=== PATIENT | male | born 1950 | race Caucasian/White ===

== ENCOUNTER 2023-03-12 16:33 | Inpatient (IN) | payer OTHER, SELFPAY ==
[2023-03-10] VITALS (40 sets, daily range): BP systolic 69–136; BP diastolic 40–87; PULSE 104–106; BMI 38.9; BMI 38.6
[2023-03-10 05:50] LABS: Glucose - Point of Care 180 mg/dl (70-99)
[2023-03-10] MEDS: NSS 1000 IV ×3 (05:50→17:53)
[2023-03-10 06:08] LABS: % Basophils 0.4 % (0-2); % Eosinophils 0.1 % (0-6); % Immature Granulocytes 0.5 % (0-0.5); % Lymphocytes 20.9 % (20.5-51.1); % Monocytes 9.5 % (1.7-9.3); % Neutrophils 68.6 % (42.2-75.2); Absolute Immature Granulocytes 0.1 10^3/uL (0-0.05); Absolute Lymphocytes 2.2 10^3/uL (1.2-3.4); Absolute Neutrophils 7.3 10^3/uL (1.4-6.5); Hematocrit 44.1 % (39.0-52.0); Mean Corp Hgb Conc. 36.3 g/dL (33.0-37.0); Mean Corpuscular Hgb 29.4 pg (27.0-31.0); Mean Corpuscular Volume 80.9 fL (80.0-94.0); Mean Platelet Volume 9.3 fL (7.4-10.4); Nucleated Red Blood Cells % 0 % (-); Platelet Count 162 10^3/uL (130-400); Red Blood Cell Count 5.45 10^6/uL (4.70-6.10); Red Cell Dist. Width 13.3 % (11.5-14.5); White Blood Cell Count 10.6 10^3/uL (4.8-10.8)
[2023-03-10] MEDS: OFIRMEV 1000 MG IV (06:26)
[2023-03-10 06:27] LABS: ALT (SGPT) 23 U/L (0-50); AST (SGOT) 110 U/L (17-59); Albumin 3.9 g/dl (3.5-5.0); Alkaline Phosphatase 45 U/L (38-126); Blood Urea Nitrogen 31 mg/dl (9-20); Calcium 8.7 mg/dl (8.4-10.2); Carbon Dioxide 17 mmol/L (22-30); Chloride 88 mmol/L (98-107); Estimated Creatinine Clearance 25 ml/min; Glucose 176 mg/dl (70-99); Potassium 3.8 mmol/L (3.5-5.1); Sodium 125 mmol/L (135-145); Total Bilirubin 1.1 mg/dl (0.2-1.3); Total Protein 6.5 g/dl (6.3-8.2); eGFR 19.09
[2023-03-10 06:37] LABS: Troponin I 0.402 ng/ml
--- NOTE | 2023-03-10 06:39 | ED.GENMED ---
History of Present Illness
General
Chief Complaint: Fainting/Passed Out
Source: patient
Exam Limitations: none
Time Seen by Provider: 03/10/23 06:05
Nursing documentation reviewed up to this point in time: agreed with
Travel History
Have you had any contact with someone who has COVID-19?: Yes
Comment: patient is COVID +
Do you have any symptoms of coronavirus? Fever > 100 degrees, chills, cough, shortness of breath, sore throat, loss of taste or smell, muscle aches, or headache?: Yes
Symptoms:: COVID +
History of Present Illness
History of Present Illness:
Patient who tested positive for COVID-19 2 days ago, and started on Paxlovid yesterday by his primary care physician, presents to ED after syncopal episode this morning. Per spouse, patient who was sleeping on a recliner, had gotten up and was
going to the bathroom when he passed out. who was sleeping on the couch next to him, heard a noise and went to him immediately. Patient was already awake but appeared to be groggy. 911 was called at that time. When medics arrived, patient
was found to hypotensive and ill-appearing. On the way to the stretcher, patient had another brief episode of loss consciousness, with spontaneous resolution. Upon arrival, patient is found to be febrile, hypotensive and tachycardic. Patient has
had nonproductive cough along with diarrhea, as well as significant loss of appetite. Denies headache. Denies neck pain. Denies loss of sensation or weakness.
Review of Systems
Review of Systems
Allergies reviewed?: Yes
All Other Systems: ROS reviewed and negative except as documented in HPI and ROS
Constitutional: Reports fever and chills
EENT: Reports no symptoms
Respiratory: Reports cough
Cardiac: Reports syncope
ABD/GI: Reports nausea and diarrhea; Denies abdominal pain or vomiting
: Reports no symptoms
Musculoskeletal: Reports muscle pain
Skin: Reports no symptoms
Neurological: Reports weakness; Denies headache or numbness
Phy Exam
Physical Exam
Physical Exam:
Physical Exam
General: moderate distress, acutely ill. febrile. tachycardic.
Head: nc/at. eomi
Neck: supple. no meningeal signs. normal posterior pharynx
Heart: tachycardic, no murmur. equal radial pulses.
Lungs: mild respiratory distress. clear bilaterally
Abdomen: normal bowel sounds. not tender.
Neuro: alert and oriented. no focal neurological deficits
Skin: no rash
Psychiatric: well kept. interactive and cooperative
Extremities: no edema. no calf tenderness.
Course
Orders/Labs/Results
Orders:
Orders
03/10/23 05:30
Electrocardiogram (*1) Urgent
Reason for Study: Chest Pain
Cardiac Monitoring- Treatment ONCE
EKG- Treatment ONCE
O2 Therapy [RESP] Urgent
Titrate/Wean O2 to maintain O2 sat greater than (%): 90
Special Instructions: Maintain sats >/=90%
Pulse Ox/spot Check [RESP] Urgent
Quantity: 1
Special Instructions: ON ROOM AIR
03/10/23 05:55
Complete Blood Count/With Diff Urgent
Comprehensive Metabolic Panel Urgent
Troponin I Urgent
03/10/23 Breakfast
2000 calorie (17 carb) Diabetic
At Your Request: Limited Participation
Diabetic Diet: Low Residue
Low Lactose
03/10/23 06:25
Acetaminophen 1000MG/100Ml [Ofirmev] 1,000 mg IV NOW STA
Acetaminophen 1000MG/100Ml [Ofirmev] 1,000 mg in 100 ml .ROUTE .STK-MED
03/10/23 06:37
0.9% Sodium Chloride 1000 ml [Nss] 1,000 ml IV BOLUS
03/10/23 06:44
0.9% Sodium Chloride 500 ml [Nss] 500 ml IV BOLUS
03/10/23 07:00
0.9% Sodium Chloride 500 ml [Nss] 500 ml IV Wide Open mls/hr
03/10/23 07:42
0.9% Sodium Chloride 500 ml [Nss] 500 ml IV BOLUS
03/10/23 08:12
Admit/Transfer Patient As Directed
Co-Sign Provider:
Level of Care: Observation services
Assign to:: IMU- Intermediate Care
Physician / Group: Dr. Jason Amador/Hospitalists
Diagnosis: COVID, Syncope, Hypotension
NORepinephrine 4 MG/250 ML [Levophed] 4 mg in 250 ml IV NOW
Initial dose in mcg/min, then titrate:: 2
Titrate to keep:: SBP > 90 mmHg
Titrate by mcg/min:: 1-2 mcg/min
Frequency of titrations (minutes):: 5
Maximum dose in ICU in mcg/min:: 30
Maximum dose in IMU in mcg/min:: 8
Maximum dose in IVU in mcg/min:: 4
Begin to taper infusion when:: Remained at goal for 4hrs
Taper by mcg/min:: 1-2 mcg/min
Frequency of taper (minutes) if patient maintains goal:: 30
Taper to off?: Yes
If infusion off & no longer maintaining goal:: Contact Provider
03/10/23 08:16
Code Status As Directed
Resuscitation Status: Full Code
03/10/23 08:21
Echo Follow up Study W Dop Routine
Reason for Study: Syncope, Hypotension
03/10/23 08:22
Orthostatic Vital Signs As Directed
Orthostatic VS Frequency: BID
03/10/23 08:25
NEPHROLOGY CONSULT Routine
Consulting Provider: Kim Membreno
Was physician already notified: Yes
Reason for consult: Acute Symptomatic Hyponatremia. SHAYY.
03/10/23 08:[address] Non Medication Order As Directed
Physician Order: PLEASE CONFIRM AND VERIFY THE ACCURACY OF PATIENT'S HOME MEDICATIONS AND PLEASE UPDATE THOSE
MEDICATIONS AND DOSES IN THE CHART
Above order entered?: Yes
03/10/23 10:20
Blood Culture Q30M
KALYN Source: Blood/Venous
Specimen Description:
03/10/23 10:42
Blood Culture Q30M
KALYN Source: Blood/Venous
Specimen Description:
03/10/23 11:40
0.9% Sodium Chloride 1000 ml [Nss] 1,000 ml IV 75 mls/hr
Aspirin Chewable [Low Strength Aspirin] 81 mg PO DAILY
ezetimibe-simvastatin 1 tablet PO DAILY
03/10/23 11:40
Activity As Directed
Activity Level: As Tolerated
Intake/ Output As Directed
Frequency: q12h
Neurological Checks As Directed
Frequency: q4h
Pneumatic Compression Sleeves As Directed
Type: Knee high
Vascular Checks As Directed
Location: Bilateral Upper and Lower Extremities
Frequency: q4h
Vital Signs As Directed
Frequency: Per unit guidelines
CR Chest Portable - 1 View Urgent
Comment:
Reason For Exam: Hypotension
Reason Study Needs to be Portable: Patient Unstable
DX Deep Vein Thrombosis Video Routine
03/10/23 15:10
Basic Metabolic Panel Q6H
Troponin I Q6H
03/10/23 16:00
Heparin 5,000 units SC Q8
03/10/23 17:02
Basic Metabolic Panel Q6H
Troponin I Q6H
03/11/23 01:07
Basic Metabolic Panel Q6H
Troponin I Q6H
03/11/23 03:46
Basic Metabolic Panel Q6H
Magnesium IN AM
Troponin I Q6H
03/11/23 03:47
Complete Blood Count/With Diff IN AM
03/11/23 07:00
Levothyroxine [Synthroid] 0.125 mcg PO DAILY@0700
03/11/23 08:00
Multivitamin [Theragran] 1 tablet PO DAILY
03/11/23 12:00
Basic Metabolic Panel Q6H
03/11/23 18:00
Basic Metabolic Panel Q6H
03/12/23 00:00
Basic Metabolic Panel Q6H
03/12/23 06:00
Basic Metabolic Panel Q6H
Complete Blood Count/With Diff IN AM
Magnesium IN AM
03/12/23 12:00
Basic Metabolic Panel Q6H
03/12/23 18:00
Basic Metabolic Panel Q6H
03/13/23 06:00
Complete Blood Count/With Diff IN AM
03/14/23 06:00
Complete Blood Count/With Diff IN AM
03/15/23 06:00
Complete Blood Count/With Diff IN AM
03/16/23 06:00
Complete Blood Count/With Diff IN AM
03/17/23 06:00
Complete Blood Count/With Diff IN AM
03/18/23 06:00
Complete Blood Count/With Diff IN AM
03/19/23 06:00
Complete Blood Count/With Diff IN AM
03/20/23 06:00
Complete Blood Count/With Diff IN AM
Abnormal Lab Results
03/10/23 03/10/23
05:48 05:55
Abs Immat Gran (auto) 0.1 H 10^3/uL
(0-0.05)
Absolute Neuts (auto) 7.3 H 10^3/uL
(1.4-6.5)
Absolute Monos (auto) 1.0 H 10^3/uL
(0.1-0.6)
Monocytes % 9.5 H %
(1.7-9.3)
Sodium 125 L mmol/L
(135-145)
Chloride 88 L mmol/L
(98-107)
Carbon Dioxide 17 L mmol/L
(22-30)
BUN 31 H mg/dl
(9-20)
Creatinine 3.3 H mg/dL
(0.7-1.3)
Glucose 176 H mg/dl
(70-99)
AST 110 H U/L
(17-59)
Troponin I 0.402 H* ng/ml
POC Glucose 180 H mg/dl
(70-99)
03/10/23 05:55
03/10/23 05:55
Vital Signs
Initial and Last Documented VS:
Initial Vital Signs
Temp Pulse Resp BP Pulse Ox
99.9 F 99 32 82/46 98
03/10/23 05:31 03/10/23 05:31 03/10/23 05:31 03/10/23 05:31 03/10/23 05:31
Last Documented Vital Signs
Temp Pulse Resp BP Pulse Ox
97.6 F 101 24 122/103 96
03/11/23 03:40 03/11/23 10:01 03/11/23 10:01 03/11/23 10:01 03/11/23 10:01
MDM/Problems Addressed
MDM/Problems Addressed:
History and exam consistent with syncopal episode, likely secondary to dehydration from ongoing COVID-19 infection, causing significant dehydration. Patient is alert, awake, and oriented at this time, without any neurological deficit. There is no
significant evidence of head trauma noted, and as such, we will withhold imaging studies at this time.
Acute renal failure on chronic renal insufficiency noted, likely secondary to dehydration.
Patient will be admitted for further evaluation and treatment, including continued hydration and fever control.
Patient with persistent hypotension despite IV fluid administration. As such, patient will be started on Levophed and admitted to ICU.
Critical care statement: A total of 40 minutes of critical care time was provided for this patient. This includes management of unstable vital signs, evaluation of the patient at bedside, reviewing the patient's pertinent medical records, review of
old EKGs and review of pertinent medical records. This time with separate from time utilized to perform the aforementioned documented procedures
*Critical Care Note
Total Time (30-74mins, 75-104mins- exclusive of procedures): 40 min
ED Attending Note
-
Portions of this chart may have been created with voice recognition software.� Occasional wrong word or��sound alike� substitutions may have occurred due to the inherent limitations of voice recognition software.
Discharge Plan
Departure
Patient Disposition: Admit
Date of Disposition: 03/10/23
Time of Disposition: 07:11
Presentation/result/management discussed w/ accepting MD/DO: Hospitalist
Condition: Fair
Covid-19: Confirmed COVID-19
Discharge Problem:
COVID-19, Syncope, Dehydration, Renal failure (ARF), acute on chronic
Interventions
Interventions:
*Risk Screen - Suicide Last Done: 03/10/23 16:39
*General Assessment Last Done: 03/10/23 05:31
*Neglect/Abuse Screening Last Done: 03/10/23 05:31
ED- Fall Risk Assessment Last Done: 03/10/23 05:40
*ED COVID-19 Vaccine History Last Done: 03/10/23 16:42
*Nursing Disposition Last Done: 03/10/23 16:09
ED- Cardiac Assessment Last Done: 03/10/23 05:40
ED- Neurological Assessment Last Done: 03/10/23 05:40
Discharge Date and Time
Discharge Date/Time: 03/10/23 16:10
[2023-03-10] MEDS: NSS 500 IV ×2 (06:47→07:49)
[2023-03-10] MEDS: LEVOPHED 250 IV (08:24)
--- NOTE | 2023-03-10 08:41 | HPS.HSE ---
Family Physician
-
Family Physician: PHYSICIAN PRIVATE
Chief Complaint
-
Passed out
History of Present Illness
72 y/o male with past medical history of Hypopituitarism, Adrenal Insufficiency on home hydrocortisone, History of pituitary tumor status post surgical resection approximately in 2001, Hypothyroidism, Type 2 Diabetes Mellitus, History of
Hypertension, Diverticulosis, Hyperlipidemia, Peripheral artery disease and GERD, presented with syncope. Patient tested positive for COVID-19 2 days ago, and started on Paxlovid yesterday by his primary care physician (he took his first 2 doses
yesterday), presented to the ED after syncopal episode this morning. Per patient's (who was present in the room at the time of admission) patient was sleeping on a recliner, had gotten up and was going to the bathroom when he passed out.
who was sleeping on the couch next to him, did not see patient pass out but heard a noise and went to him immediately. EMS was called at that time and when medics arrived, patient was found to hypotensive and ill-appearing. On the way to the
stretcher with EMS, patient had another brief episode of loss consciousness, with spontaneous resolution. Upon arrival to the ER, patient was found to be febrile, hypotensive and tachycardic. Patient, per patient's , also has had nonproductive
cough along with diarrhea, as well as significant loss of appetite.
Medical History
Past Medical History
Past Medical History: Reports Other (As per HPI above)
Past Surgical History: Reports Other (Colonoscopy. Pituitary Tumor Resection.)
Social History
Tobacco: Former Smoker
Alcohol: None
Drug: None
Family History
Family History: Not pertinent
Allergies / Home Medications
Allergies reflects when Allergies were last updated in [facility].
Home Medications with original date entered in [facility]
Allergy/Medication List:
Allergies
Allergy/AdvReac Type Severity Reaction Status Date / Time
No Known Allergies Allergy Verified 07/17/16 13:46
Home Medications
Androgel 06/29/08
Aspirin 06/29/08
Benicar 1 tab PO DAILY 06/29/08
Fish Oil 06/29/08
Hydrocortisone 1 tab PO DAILY 06/29/08
Synthroid 0.125 mg PO DAILY 06/29/08
aspirin 81 mg chewable tablet (Baby Aspirin) 81 mg PO DAILY 06/29/08
ezetimibe 10 mg-simvastatin 40 mg tablet 1 tab PO DAILY 06/29/08
metformin 500 mg tablet,extended release 24 hr 500 mg PO DAILY 06/29/08
multivitamin with folic acid 400 mcg tablet (Tab-A-Val) 1 tab PO DAILY 06/29/08
Review of Systems
-
A 12 point ROS was completed and negative except as noted: Yes
Physical Exam
Vital Signs
Vital Signs
Temp Pulse Resp BP Pulse Ox
99.4 F 97 32 90/65 95
03/10/23 07:42 03/10/23 08:34 03/10/23 08:34 03/10/23 08:34 03/10/23 08:34
Physical Exam
General: Appears in Distress (mild distress due to illness)
HEENT: NormoCephalic
Respiratory: Clear
Cardiac: S1/S2 and Tachycardia
GI: Soft, Non Tender and Normal Bowel Sounds
Musculoskeletal: No Cyanosis and No Edema
Skin: Warm and Dry
Neuro: Awake, Alert, AO x 3, Nonfocal/grossly intact and Other (Moves all extremities spontaneously. Speech is clear.)
Psych: Calm, Intact Judgment/Insight and Agitated
Laboratory Results
-
03/10/23 05:55
03/10/23 05:55
Laboratory Results
Total Bilirubin 1.1 mg/dl (0.2-1.3) 03/10/23 05:55
AST 110 U/L (17-59) H 03/10/23 05:55
ALT 23 U/L (0-50) 03/10/23 05:55
Alkaline Phosphatase 45 U/L (38-126) 03/10/23 05:55
Troponin I 0.402 ng/ml H* 03/10/23 05:55
Impression/Plan
-
Assessment/Plan
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
Fever
Suspected Sepsis TEST OPERATOR Secondary to COVID
Syncope, Suspected Associated with Dehydration, Poor PO Intake
Diarrhea
Hypotension
Hypopituitarism
Adrenal Insufficiency on home hydrocortisone
History of pituitary tumor status post surgical resection approximately in 2001
-Paxlovid started outpatient however patient has significant SHAYY with low eGFR - consulted ID for further guidance on Paxlovid and other COVID therapies
-Check lactic acid
-IV fluid boluses given in the ER; continue maintenance IV fluids
-Continue Levophed/vasopressors as needed to maintain MAP>65
-Stress dose steroids started in the form of Hydrocortisone IV 60 mg Q6H (assuming patient takes Hydrocortisone 20 mg PO BID at home -- will need to confirm home med rec)
-Consulted endocrinology, recommendations appreciated
-Verify home dose of Androgel and can resume as appropriate
-Orthostatic vital signs
-Troponins
-Echocardiogram
Symptomatic Hyponatremia - Suspected Hypovolemic
-IV fluid boluses given in the ER
-BMP every 6 hours
-Nephrology consulted, recommendations appreciated
Acute Kidney Injury
-IV fluid boluses given in the ER
-Nephrology consulted, recommendations appreciated
Hypothyroidism
-Continue home Synthroid
Type 2 Diabetes Mellitus - Insulin Sliding Scale and Accuchecks. Hold home Metformin given renal function.
History of Hypertension? - Hold home Benicar
History of Diverticulosis
Venous stasis
Hyperlipidemia
Peripheral artery disease - Continue Aspirin 81 mg daily
Nocturia
History of Tremor per records
History of Tic per records
GERD
WILL NEED HOME MED REC VERIFIED FOR ACCURACY; REQUEST HAS BEEN PLACED
DVT PPx: Heparin subq
Code Status: Full Code
Hypotension requiring increased dose of IV fluids as well as requiring vasopressors needing admission to and monitoring in the IMU is a high-risk encounter.
[2023-03-10 11:11] LABS: Lactic Acid 1.9 mmol/L (0.7-2.0)
[2023-03-10] MEDS: NSS IV (12:11)
[2023-03-10 12:32] LABS: Glucose - Point of Care 151 mg/dl (70-99)
[2023-03-10] MEDS: NOVOLOG FLEXPEN-LOW RESISTANCE SC (12:37)
[2023-03-10] MEDS: SOLU-CORTEF 50 MG IV ×3 (12:50→23:55)
[2023-03-10] MEDS: LOW STRENGTH ASPIRIN 81 MG PO (12:50)
--- NOTE | 2023-03-10 13:48 | CON.ID ---
Consultation
-
Date/Time Consultation Requested: March 10, 2023 0834
Date/Time Consultation Performed: March 10, 2023 1350
Requesting Provider: Dr. Jason Amador
Performing Provider: Dr. Ciera Baptiste
Reason for Consultation: COVID, GFR less than 30
Chief Complaint / Past History
Chief Complaint
Passed out.
History of Present Illness
History obtained from the patient. He is a 72-year-old male with hypopituitarism, adrenal insufficiency on hydrocortisone, diabetes mellitus, who started feeling unwell on March 07 with cough, rhinorrhea,malaise, poor appetite, diarrhea,
fever x 1. He tested positive for COVID. He called his physician who prescribed Paxlovid the next day on Wednesday. He had 3 doses. However overnight, he got up from the recliner to go to the bathroom. He felt very dizzy and passed out. His
heard him falling on the floor and found him unresponsive. She called EMS. Patient regained consciousness. He was very hypotensive. En route to the ER in ambulance, patient had another episode of unconsciousness. In the ER patient is febrile
102.8. Blood pressure 75/44. O2 sat 96% room air. He is in SHAYY. Patient reports he is up-to-date with the most recent COVID-vaccine. Cough is nonproductive. Still having diarrhea. No abdominal pain.
Past History
Additional Past Medical History:
Diabetes mellitus type 2
Hypertension
Pituitary adenoma s/p resection
Adrenal insufficiency on hydrocortisone
Hypothyroidism
PAD
Diverticulosis
Right knee surgery
Allergy History:
No Known Allergies Allergy (Verified 07/17/16 13:46)
Medications Reviewed: Yes
Current Antibiotics:
None
Social History
Tobacco: Former Smoker
Alcohol: None
Drug: None
Personal:
Family History
Family History: Not Pertinent
Review of Systems
Review of Systems
General: Fever, Chills and Change in Appetite
HEENT: Negative Stiff Neck, Headache or Pharyngitis
Respiratory: Cough; Negative Dyspnea or Sputum Production
Gasteroenterology: Other (+ diarrhea); Negative Nausea or Vomiting
Genital / Urological: Negative Dysuria or Flank Pain
Endocrine: Weakness and Fatigue
Skin / Hair / Nails: Negative Rash
Neurological: Dizziness; Negative Headache
All systems: All other systems were reviewed and were negative
Vital Signs
Temp Pulse Resp BP Pulse Ox
99.4 F 104 28 103/48 96
03/10/23 07:42 03/10/23 13:15 03/10/23 13:15 03/10/23 12:00 03/10/23 12:15
Selected Entries
03/10/23
06:00
Temp 102.8 F H
Physical Exam
Physical Exam
Constitutional: No Acute Distress and Comfortable
Eyes: Sclera Anicteric and Other (injected conjunctiva bilaterally)
Cardiovascular: S1/S2 and Other (tachycardic)
Pulmonary: Clear
Gastrointestinal: Soft, Non Tender, Non Distended and Normal Bowel Sounds
Genito-Urinary: Negative Garcia or CVA Tenderness
Extremities: Negative Edema
Neurological: AO x 3
Lab / Diagnostic Study Results
03/10/23 05:55
Abs Immat Gran (auto) 0.1 10^3/uL (0-0.05) H 03/10/23 05:55
Absolute Neuts (auto) 7.3 10^3/uL (1.4-6.5) H 03/10/23 05:55
Absolute Lymphs (auto) 2.2 10^3/uL (1.2-3.4) 03/10/23 05:55
Absolute Monos (auto) 1.0 10^3/uL (0.1-0.6) H 03/10/23 05:55
Absolute Basos (auto) 0.0 10^3/uL (0-0.2) 03/10/23 05:55
Immature Gran % 0.5 % (0-0.5) 03/10/23 05:55
Neutrophils % 68.6 % (42.2-75.2) 03/10/23 05:55
Lymphocytes % 20.9 % (20.5-51.1) 03/10/23 05:55
Monocytes % 9.5 % (1.7-9.3) H 03/10/23 05:55
Eosinophils % 0.1 % (0-6) 03/10/23 05:55
Basophils % 0.4 % (0-2) 03/10/23 05:55
Lactic Acid 1.9 mmol/L (0.7-2.0) 03/10/23 10:42
Microbiology Results
Micro:
03/10/23 10:42 Blood Culture - Pending
Blood/Venous
03/10/23 10:20 Blood Culture - Pending
Blood/Venous
03/10/23 10:20 Salmonella/Shigella Culture - Pending
Feces/Stool Campylobacter Culture - Pending
Shiga Toxin Test - Pending
03/10/23CXR: Limited AP semierect chest radiograph with possible mild left basilar subsegmental atelectasis.
Assessment / Plan
# Mild COVID19 infection
- Uptodate with vaccine
-Symptom onset and COVID Ag postive on 03/07.
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
- No hypoxia. No PNA
- Avoid Paxlovid due to SHAYY, GFR 19.
- Ordered Molnupiravir 800mg po bid x 5 days.
- COVID isolation through 03/17/23.
# Hypotension
- likely due to dehydrtion and stress response from COVID in pt with adrenal insufficiency on chronic steroid
# SHAYY
-Management as per nephrology.
--- NOTE | 2023-03-10 14:15 | CON.MD ---
Consultation - Medical
-
IMP:
Hyponatremia
SHAYY-cr 0.7 in in [facility]
A gap met acidosis
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
Fever
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
Syncope, hypotension
Diarrhea
Hypopituitarism
Adrenal Insufficiency on home hydrocortisone
History of pituitary tumor status post ablation approximately in 2000
Hypothyroidism
Type 2 Diabetes Mellitus
History of Hypertension
History of Diverticulosis
Venous stasis �
Hyperlipidemia �
Peripheral artery disease
Nocturia� �
History of Tremor per records� �
History of Tic per records
GERD
Plan:
A/w syncope and found sespis, hyponatremia and SHAYY
SHAYY likely from prerenal, check UA and FEna, renal US when can
follow bladder scan , cont isotonic fluids
expect to see improvement
cont pressors to keep MAP>65
stress dose steroids with h/o adrenal insufficiency
hypovolemic hyponatremia -cotn iVF , if worsens likely give 3%saline
mild gap met acidosis - normal L acid , bicarb fluid if worsens
avoid nephrotoxins hold ARB and metfomin, Farxiga
EUa for COVID
[id number]
[2023-03-10] MEDS: MOLNUPIRAVIR (EUA) 800 MG PO ×2 (15:12→20:27)
[2023-03-10 15:40] LABS: Blood Urea Nitrogen 30 mg/dl (9-20); Calcium 7.7 mg/dl (8.4-10.2); Carbon Dioxide 17 mmol/L (22-30); Chloride 97 mmol/L (98-107); Estimated Creatinine Clearance 24 ml/min; Glucose 182 mg/dl (70-99); Potassium 3.8 mmol/L (3.5-5.1); Sodium 126 mmol/L (135-145); eGFR 18.41
--- NOTE | 2023-03-10 15:45 | CON.GI ---
Addendum entered and electronically signed by Michoacano Marquez MD 03/10/23 18:13:
I saw and examined the patient.
The STAINLESS STEEL FINISHER or PA's note was reviewed and I agree with the note.
Comment: 72yo male presents with diarrhea starting Wednesday and also tested positive for COVID at that time. Had a syncopal episode at home. Denies abd pain. Has had profuse diarrhea since admission with bleeding from perianal skin excoriation.
Presents with ARF Cr 3.3, hypotension. He was at grandson's birthday on Wednesday in [place] and had hoagie. Denies sick contacts. No prior issues with diarrhea. Last colonoscopy 2016 only showed diverticulosis. He has hx pituitary adenoma and
adrenal insufficiency so he was started on stress steroids.
REC:
Continue supportive care, IVF, monitor BP. Diet as tolerated
Check stool C diff, Ecoli shiga toxin, giardia
Diarrhea could be part of COVID presentation or a separate infection. In either case, supportive care to treat.
Original Note:
Consultation
-
Date/Time Consultation Requested: 03/10/23 1515
Date/Time Consultation Performed: 02/20/23 1545
Requesting Provider: Jason Amador MD
Performing Provider: NATALIE Greenwood, Michoacano Marquez MD
Reason for Consultation: diarrhea
Medical History
Chief Complaint / HPI
Chief Complaint: diarrhea, rectal bleeding
History of Present Illness:
Pt is a 72yo with hx pituitary adenoma with ablation, adrenal insufficiency, NIDDM, HTN, hypercholesterolemia, hypothyroidism, tremors with presentation to ER with syncope. On EMS arrival noted with hypotension and ill appearing. In ER he was also
noted with fever, tachycardia with hemoconcentration and dehydration with hbg 16, SHAYY with creat 3.3, Na 125, Troponin 0.402. In reviewing with patient he was at birthday alliance party for grandnataliia on Wednesday eating hoagies then Wednesday began with
symptoms with increased diarrhea with decreased appetite and eating less. He then tested + for covid on Wednesday but with Paxlovid use.
Pt states stools are typically normal prior to onset. He has colonoscopy [place] [address] Montanez with diverticulosis. He otherwise denies abdominal pain, vomting, or blood in stools but noted with some local bleeding with irritation with
diarrhea. No other sick contacts or tainted foods he could recall.
Past Medical History
Past Medical History: HTN, Hypercholesterolemia, NIDDM and Other (covid 19, adrenal insufficiency, pituitary adenoma, obesity, PAD, tremor )
Past Surgical History: Orthopedic, Tonsilectomy and Other (pituitary adenoma ablation)
Social History
Tobacco: Former Smoker
Alcohol: Occasional (beer every 2 months )
Drug: None
Personal:
Living: With Family
Family History
Family History: Other (no family hx GI issues )
Allergies / Home Medications
Allergy/AdvReac Type Severity Reaction Status Date / Time
No Known Allergies Allergy Verified 07/17/16 13:46
Medication Instructions Recorded
aspirin 81 mg tablet,delayed 81 mg PO DAILY Blood Clot 03/10/23
release Prevention/Tx
clonidine HCl 0.1 mg tablet 0.1 mg PO BID Blood Pressure 03/10/23
dapagliflozin propanediol 5 mg 5 mg PO HS Diabetes 03/10/23
tablet (Farxiga)
hydrocortisone 20 mg tablet 20 mg PO DAILY adrenal 03/10/23
insufficiency
hydrocortisone 5 mg tablet 5 mg PO QPM adrenal insufficiency 03/10/23
levothyroxine 125 mcg tablet 125 mcg PO DAILY Thyroid 03/10/23
losartan 25 mg tablet 25 mg PO QPM Blood Pressure 03/10/23
metformin 750 mg tablet,extended 1,500 mg PO QPM Diabetes 03/10/23
release 24 hr
nirmatrelvir 300 mg (150 mg 0 ea PO .COMPLEX covid 03/10/23
x2)-ritonavir 100 mg tablet,dose
pack (Paxlovid)
omega 4-wnr-ume-fish oil 1,000 mg 1 cap PO DAILY Supplement 03/10/23
(120 mg-180 mg) capsule (Fish Oil)
simvastatin 40 mg tablet 40 mg PO HS High Cholesterol 03/10/23
testosterone 10 mg/0.5 2 pump transdermal SUTUTHSA apply 03/10/23
gram/actuation transdermal gel pump to B/L thighs/shoulders/stomach
testosterone 10 mg/0.5 4 pump transdermal MOWEFR apply to 03/10/23
gram/actuation transdermal gel pump B/L thighs/shoulders/stomach
therapeutic multivitamin 1 tab PO DAILY Supplement 03/10/23
vitamin E 1 tab PO QPM Supplement 03/10/23
Review of Systems
-
History Source: Patient
Constitutional: Reports Fever and Fatigue
EENT: Reports No Symptoms
Respiratory: Reports Trouble Breathing (minimal )
Cardiac: Reports Syncope
Abdomen/GI: Reports Diarrhea
: Reports Other (decreased urination)
Musculoskeletal: Reports No Symptoms
Skin: Reports No Symptoms
Neurological: Reports Weakness
Endocrine: Reports No Symptoms
Hematologic/Lymphatic: Reports Bleeding
Vital Signs
Temp Pulse Resp BP Pulse Ox
99.4 F 93 22 135/70 96
03/10/23 07:42 03/10/23 15:11 03/10/23 15:11 03/10/23 15:11 03/10/23 12:15
Physical Exam
Exam
General: Other (weakness but conversant )
HEENT: Normocephalic and Anicteric
Respiratory: Other (decreased )
Cardiac: Other (tachy with turning in bed )
GI: Soft, Non Tender and Non Distended
Musculoskeletal: No Clubbing and No Cyanosis
Skin: Warm and Dry
Neuro: Awake and Alert
Psych: Calm
Results
WBC 10.6 10^3/uL (4.8-10.8) 03/10/23 05:55
Hgb 16.0 g/dL (13.0-18.0) 03/10/23 05:55
Hct 44.1 % (39.0-52.0) 03/10/23 05:55
MCV 80.9 fL (80.0-94.0) 03/10/23 05:55
Plt Count 162 10^3/uL (130-400) 03/10/23 05:55
Absolute Neuts (auto) 7.3 10^3/uL (1.4-6.5) H 03/10/23 05:55
Sodium 126 mmol/L (135-145) L 03/10/23 15:10
Potassium 3.8 mmol/L (3.5-5.1) 03/10/23 15:10
Chloride 97 mmol/L (98-107) L 03/10/23 15:10
Carbon Dioxide 17 mmol/L (22-30) L 03/10/23 15:10
BUN 30 mg/dl (9-20) H 03/10/23 15:10
Creatinine 3.4 mg/dL (0.7-1.3) H 03/10/23 15:10
Calcium 7.7 mg/dl (8.4-10.2) L 03/10/23 15:10
Total Bilirubin 1.1 mg/dl (0.2-1.3) 03/10/23 05:55
AST 110 U/L (17-59) H 03/10/23 05:55
ALT 23 U/L (0-50) 03/10/23 05:55
Alkaline Phosphatase 45 U/L (38-126) 03/10/23 05:55
Diagnostic Image Results:
03/10/22 CXR Limited AP semierect chest radiograph with possible mild left basilar subsegmental atelectasis.
Prior GI Procedures:
Colonoscopy: 2017 diverticulosis
Assessment / Plan
-
Pt is a 72yo with hx pituitary adenoma with ablation, adrenal insufficiency, NIDDM, HTN, hypercholesterolemia, hypothyroidism, tremors with presentation to ER with syncope. On EMS arrival noted with hypotension and ill appearing. In ER he was also
noted with fever, tachycardia with hemoconcentration and dehydration with hbg 16, SHAYY with creat 3.3, Na 125, Troponin 0.402. In reviewing with patient he was at birthday alliance party for grandson on Wednesday eating hoagies then Wednesday began with
symptoms with increased diarrhea with decreased appetite and eating less. He then tested + for covid on Wednesday but with Paxlovid use. He has colonoscopy [place] [address] Montanez with diverticulosis. No other sick contacts or tainted foods he
could recall.
-sudden onset diarrhea
-local rectal bleeding with irritation with diarrhea
-covid +
-syncope/hypotension
-fever
-SHAYY
-tachycardia
-hyponatremia
other medical problems:
-pituitary adenoma
-adrenal insufficiency
-tremors
-NIDDM
-diverticulosis
-hypothyroidism
PLAN:
Etiology of diarrhea related to infectious source with sudden onset of large volume stool leading to SHAYY, dehydration, syncope vs covid related vs other
Ecoli Shiga can be seen with elevated creat and HUS cont to trend creat closely
cont rx for covid per ID with �Molnupiravir 800mg po bid x 5 days
check stool studies to rule out any other infectious etiology
cont hydration per nephrology
diet as tolerated add low lactose and low residue to diet
local care for rectal bleeding likely irritation with diarrhea
remain on chronic steroid with adrenal insufficiency
will follow
-
-
Thank you for consultation and allowing me to participate in the patient's care. Please call the configuration specialist GI physician during the after hours with any questions or concerns.
[2023-03-10 15:56] LABS: Troponin I 0.147 ng/ml
[2023-03-10 16:50] LABS: Glucose - Point of Care 231 mg/dl (70-99)
[2023-03-10 17:24] LABS: Urine Albumin Trace (Neg - Trace); Urine Bilirubin Negative (Negative); Urine Character Clear (Clear); Urine Color Yellow; Urine Glucose 2+ (Negative); Urine Ketone 1+ (Negative); Urine Leukocyte Negative (Negative); Urine Nitrite Negative (Negative); Urine Occult Blood 4+ (Negative); Urine Urobilinogen Negative (Neg - 1+)
[2023-03-10 17:30] LABS: Urine Squamous Cell 0-2 /LPF (Few)
[2023-03-10 17:36] LABS: Blood Urea Nitrogen 29 mg/dl (9-20); Calcium 8.2 mg/dl (8.4-10.2); Carbon Dioxide 18 mmol/L (22-30); Chloride 96 mmol/L (98-107); Estimated Creatinine Clearance 27 ml/min; Glucose 214 mg/dl (70-99); Sodium 126 mmol/L (135-145); eGFR 20.57
[2023-03-10 17:45] LABS: Protein/creatinine Ratio 1.3; Urine Protein 45 mg/dl; Urine Sodium 99 mmol/L (30-90)
[2023-03-10] MEDS: HEPARIN 5000 UNITS SC ×2 (17:54→23:55)
[2023-03-10] MEDS: VITAMIN E 400 UNITS PO (17:55)
[2023-03-10] MEDS: LIPITOR 20 MG PO (17:55)
[2023-03-10] MEDS: NOVOLOG FLEXPEN-LOW RESISTANCE 2 UNITS SC (18:00)
--- NOTE | 2023-03-10 18:47 | PTCARENOTE ---
Patient admitted to IMU with diagnosis Covid. Patient is drowsy but oriented. Having large amount of green liquid stool. Rectal trumpet inserted, GI consulted. Patient is now urinating in urinal 200-300ml each time. Consumed half of dinner. Levophed
continues at 4mcg along with IV NSS.
[2023-03-10] MEDS: TYLENOL 650 MG PO (20:27)
[2023-03-10 21:51] LABS: Glucose - Point of Care 251 mg/dl (70-99)
[2023-03-11] VITALS (48 sets, daily range): BP systolic 76–144; BP diastolic 46–106; PULSE 91–107; O2SAT 92–96; BMI 36.6
[2023-03-11 01:42] LABS: Troponin I 0.046 ng/ml
[2023-03-11 01:45] LABS: Blood Urea Nitrogen 31 mg/dl (9-20); Calcium 8.7 mg/dl (8.4-10.2); Carbon Dioxide 15 mmol/L (22-30); Chloride 97 mmol/L (98-107); Estimated Creatinine Clearance 37 ml/min; Glucose 258 mg/dl (70-99); Potassium 3.9 mmol/L (3.5-5.1); Sodium 129 mmol/L (135-145); eGFR 31.05
[2023-03-11] MEDS: LEVOPHED 250 IV (03:53)
[2023-03-11 04:23] LABS: % Basophils 0.1 % (0-2); % Immature Granulocytes 0.3 % (0-0.5); % Lymphocytes 4.9 % (20.5-51.1); % Monocytes 3.5 % (1.7-9.3); % Neutrophils 91.2 % (42.2-75.2); Absolute Lymphocytes 0.5 10^3/uL (1.2-3.4); Absolute Monocytes 0.4 10^3/uL (0.1-0.6); Hematocrit 42.6 % (39.0-52.0); Hemoglobin 14.9 g/dL (13.0-18.0); Mean Corpuscular Hgb 29.2 pg (27.0-31.0); Mean Corpuscular Volume 83.4 fL (80.0-94.0); Mean Platelet Volume 9.8 fL (7.4-10.4); Nucleated Red Blood Cells % 0 % (-); Platelet Count 157 10^3/uL (130-400); Red Blood Cell Count 5.11 10^6/uL (4.70-6.10); Red Cell Dist. Width 13.3 % (11.5-14.5)
[2023-03-11 04:46] LABS: Blood Urea Nitrogen 33 mg/dl (9-20); Calcium 8.7 mg/dl (8.4-10.2); Carbon Dioxide 16 mmol/L (22-30); Chloride 95 mmol/L (98-107); Estimated Creatinine Clearance 37 ml/min; Glucose 259 mg/dl (70-99); Magnesium 2.3 mg/dl (1.6-2.3); Sodium 131 mmol/L (135-145); eGFR 31.05
[2023-03-11 04:53] LABS: Troponin I 0.041 ng/ml
[2023-03-11] MEDS: SYNTHROID 125 MCG PO (06:05)
[2023-03-11] MEDS: SOLU-CORTEF 50 MG IV (06:05)
--- NOTE | 2023-03-11 07:09 | PTCARENOTE ---
pt pulled out rectal trumpet- pt without trumpet for a little bit- no diarrhea noted- rectal trumpet to stay out at this time, pt happy and in agreement.
[2023-03-11] MEDS: NOVOLOG FLEXPEN-LOW RESISTANCE 3 UNITS SC (08:48)
[2023-03-11 08:51] LABS: Glycohemoglobin (HgbA1c) 6.9 % (4.0-5.6)
[2023-03-11] MEDS: DESENEX/MITRAZOL/ZEASORB 1 APPLIC TOPICAL ×2 (08:55→19:48)
[2023-03-11 08:57] LABS: Glucose - Point of Care 258 mg/dl (70-99)
[2023-03-11] MEDS: HEPARIN 5000 UNITS SC ×2 (08:57→17:12)
[2023-03-11] MEDS: LOW STRENGTH ASPIRIN 81 MG PO (08:57)
[2023-03-11] MEDS: MOLNUPIRAVIR (EUA) 800 MG PO ×2 (08:58→19:48)
[2023-03-11] MEDS: THERAGRAN 1 TABLET PO (08:58)
[2023-03-11] MEDS: NSS 1000 IV (09:01)
[2023-03-11] MEDS: NON-FORMULARY ITEM 2 PUMP TRANSDERM (09:33)
--- NOTE | 2023-03-11 10:13 | W.PN.ID1 ---
Date of Service
Date of Service: March 11, 2023
Today's Communication
Continue molnupiravir.
Assessment / Plan
# Mild COVID19 infection
- Uptodate with vaccine
-Symptom onset and COVID Ag postive on 03/07.
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
- No hypoxia. No PNA
- Avoid Paxlovid due to SHAYY
- Continue Molnupiravir 800mg po bid x 5 days.
- COVID isolation through 03/17/23.
# Diarrhea resolved
-C. diff negative
# Hypotension - resolved
- likely due to dehydration and stress response from COVID in pt with adrenal insufficiency on chronic steroid
# SHAYY
-Management as per nephrology.
#Additional Past Medical History:
Diabetes mellitus type 2
Hypertension
Pituitary adenoma s/p resection
Adrenal insufficiency on hydrocortisone
Hypothyroidism
PAD
Diverticulosis
Right knee surgery
Chief Complaint
-: Other (COVID)
Subjective / Review of Systems
Feeling better. Diarrhea resolved.
+non-productive cough still
Vital Signs / Physical Exam
Vital Signs
Vital Signs
Temp Pulse Resp BP Pulse Ox
97.6 F 101 24 122/103 96
03/11/23 03:40 03/11/23 10:01 03/11/23 10:01 03/11/23 10:01 03/11/23 10:01
Physical Exam
Constitutional: No Acute Distress, Comfortable and Obese
Cardiovascular: Regular Rate and S1/S2
Pulmonary: Clear
Gastrointestinal: Soft, Non Tender, Non Distended and Normal Bowel Sounds
Genito-Urinary: Negative CVA Tenderness
Extremities: Negative Edema
Neurological: AO x 3
Objective Data
Lab Data
Lab Results
03/11/23 03:47
Estimated Creat Clear 37 ml/min 03/11/23 03:46
Lactic Acid 1.9 mmol/L (0.7-2.0) 03/10/23 10:42
Total Bilirubin 1.1 mg/dl (0.2-1.3) 03/10/23 05:55
AST 110 U/L (17-59) H 03/10/23 05:55
ALT 23 U/L (0-50) 03/10/23 05:55
Alkaline Phosphatase 45 U/L (38-126) 03/10/23 05:55
Most recent labs reviewed.
Micro Results:
03/10/23 10:20 Salmonella/Shigella Culture - Pending
Feces/Stool Campylobacter Culture - Pending
Shiga Toxin Test - Final
No E. coli Shiga Toxin 1 or 2 detected.
03/10/23 17:03 Stool Leukocytes - Final
Feces/Stool
03/10/23 17:03 Cryptosporidium/Giardia - Final
Feces/Stool Negative for Cryptosporidium and/or Giardia Lamblia
antigens.
C. difficile GDH Antigen & Toxins - Final
Negative for toxigenic C.difficile
03/10/23 10:42 Blood Culture - Pending
Blood/Venous
03/10/23 10:20 Blood Culture - Pending
Blood/Venous
03/10/23CXR: Limited AP semierect chest radiograph with possible mild left basilar subsegmental atelectasis.
--- NOTE | 2023-03-11 10:36 | PTCARENOTE ---
Patient aaox3 this morning. Neuro check as documented. He is eager to get OOB. PT/OT consulted for him. He does c/o of pain to his R shoulder that patient reports is from his fall when he passed out. He is unable to move it and uses his left arm to
move his right. His arm is neurovascularly intact. TT to . XR's ordered. Assessment, care and VS as charted.
--- NOTE | 2023-03-11 10:38 | CM ---
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 his pcp is dr efrain aguilar and uses [facility] [place] for his meds. he
has never had a vn in the past or been ip in a rehab facility.patient is adm with covid+, in covid isolation and on anti virals. he is c diff negative and his diarrhea has resolved. is very supportive per patient.
Plan is to discharge home when stable with no home care needs.
--- NOTE | 2023-03-11 11:15 | PTCARENOTE ---
Attempted to wean off of Levo. BP dropped to 80s systolic. Levo restarted at 1mcg/min with improvement of SBP >90.
--- NOTE | 2023-03-11 11:25 | W.PN.HOSP.TC ---
Addendum entered and electronically signed by Jason Amador MD 03/11/23 13:09:
Discussed case with patient's nurse, patient has right upper extremity pain especially right shoulder pain, possibly trauma from fall. Will check CT Head. Ordered x-rays of the right clavicle and right upper extremities.
Original Note:
Today's Communication/Plan
-
Doing better
Please see below
Assessment / Plan
Assessment / Plan
Physical Exam
General: Appears in Distress (mild distress due to illness)
HEENT: Normocephalic
Respiratory: Clear
Cardiac: S1/S2 and Tachycardia
GI: Soft, Non Tender and Normal Bowel Sounds
Musculoskeletal: No Cyanosis and No Edema
Skin: Warm and Dry
Neuro: Awake, Alert, AO x 3, Nonfocal/grossly intact and Other (Moves all extremities spontaneously. Speech is clear.)
Psych: Calm, Intact Judgment/Insight and Agitated

Echocardiogram as per legal operations manager's report:
'CONCLUSIONS
Normal left ventricular size.
Mild concentric left ventricular hypertrophy.
Hyperdynamic left ventricular systolic function.
No regional wall motion abnormalities are seen.
LV ejection fraction is 70-75% by visual assessment.
Normal right ventricular size and function.
Trace mitral regurgitation.
No aortic stenosis.
Trace tricuspid regurgitation.
Normal pericardium without effusion.'

Assessment/Plan
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
Fever
Suspected Sepsis HEALTH EVALUATOR Secondary to COVID
Syncope, Suspected Associated with Dehydration, Poor PO Intake
Diarrhea
Hypotension needing Levophed
Hypopituitarism
Adrenal Insufficiency on home hydrocortisone
History of pituitary tumor status post surgical resection approximately in 2001
-Paxlovid started outpatient however patient has significant SHAYY with low eGFR - consulted ID for further guidance on Paxlovid and other COVID therapies - AVOID PAXLOVID
-Continue Molnupiravir 800mg po bid x 5 days.
-COVID isolation through 03/17/23.
-Lactic acid is within normal limits
-IV fluid boluses given in the ER; continue maintenance IV fluids
-Wean Levophed/vasopressors as able
-Status post stress dose steroids started in the form of Hydrocortisone IV 60 mg Q6H (assuming patient takes Hydrocortisone 20 mg PO BID at home -- will need to confirm home med rec)
-Spoke with Dr. Bazzi of endocrinology: change on 03/11/23 to Hydrocortisone 20 mg Q12H while hospitalized but to 20 mg in the morning and 5 mg in the evening after discharge
-Consulted endocrinology, recommendations appreciated
-Orthostatic vital signs
-Troponins elevated but unremarkable
-Echocardiogram unremarkable
Symptomatic Hyponatremia - Suspected Hypovolemic
-IV fluid boluses given in the ER
-Monitor BMP
-Nephrology consulted, recommendations appreciated
Acute Kidney Injury
Metabolic Acidosis
-IV fluid boluses given in the ER
-Continue bicarb intravenous fluids
-Nephrology consulted, recommendations appreciated
Hypothyroidism
-Continue home Synthroid
Type 2 Diabetes Mellitus - Insulin Sliding Scale and Accuchecks. Hold home Metformin given renal function.
History of Hypertension? - Hold home Benicar. Also takes Clonidine at home.
History of Diverticulosis
Venous stasis �
Hyperlipidemia �
Peripheral artery disease - Continue Aspirin 81 mg daily
Nocturia� �
History of Tremor per records� �
History of Tic per records
GERD
DVT PPx: Heparin subq
Code Status: Full Code
Anticipated Discharge: 24 - 48 hours
Subjective/Interval History
-
Date of Service: March 11, 2023
Patient was seen and examined. He appeared much better today and denied any new complaints, however, patient's nurse mentioned that he had right shoulder pain, could barely lift his right arm and using his left arm to help lift it.
Objective Data
-
Labs:
Laboratory Results
03/11/23 03/11/23 03/11/23
01:07 03:46 03:47
WBC 11.0 H
Hgb 14.9
Hct 42.6
Plt Count 157
Sodium 129 L 131 L
Potassium 3.9 4.0
Chloride 97 L 95 L
Carbon Dioxide 15 L 16 L
BUN 31 H 33 H
Creatinine 2.2 H 2.2 H
Glucose 258 H 259 H
Calcium 8.7 8.7
03/11/23 03/11/23
12:00 18:00
WBC
Hgb
Hct
Plt Count
Sodium Cancelled Cancelled
Potassium Cancelled Cancelled
Chloride Cancelled Cancelled
Carbon Dioxide Cancelled Cancelled
BUN Cancelled Cancelled
Creatinine Cancelled Cancelled
Glucose Cancelled Cancelled
Calcium Cancelled Cancelled
Vital Signs:
Vital Signs
Temp Pulse Resp BP Pulse Ox
97.6 F 101 24 122/103 96
03/11/23 03:40 03/11/23 10:01 03/11/23 10:01 03/11/23 10:01 03/11/23 10:14
I&O
03/10/23 03/11/23 03/12/23
06:59 06:59 06:59
Intake Total 4000 / 4000
Output Total 1000 / 1000
Balance 3000 / 3000
--- NOTE | 2023-03-11 12:36 | W.PN.NEPH.PH ---
Today's Communication / Plan
-
change to bicarb IVF
Assessment/Plan
-
IMP:
Hyponatremia
SHAYY-cr 0.7 in in ECW
A gap met acidosis
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
Fever
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
Syncope, hypotension
Diarrhea
Hypopituitarism
Adrenal Insufficiency on home hydrocortisone
History of pituitary tumor status post ablation approximately in 2000
Hypothyroidism
Type 2 Diabetes Mellitus
History of Hypertension
History of Diverticulosis
Venous stasis �
Hyperlipidemia �
Peripheral artery disease
Nocturia� �
History of Tremor per records� �
History of Tic per records
GERD
Plan:
A/w syncope and found sepsis, hyponatremia and SHAYY, COVID childcare aide
SHAYY likely from prerenal, UA microhematuria ?chronic, renal US when can
follow bladder scan , likely 1 more day of IVF
cr is improving 2.2 and non oliguric,
send serologies
does have tubular proteinuria 1.3gm/gm of cr
wean pressors and maintain MAP>65
stress dose steroids with h/o adrenal insufficiency
hypovolemic hyponatremia -improving with IVF
mild gap met acidosis - change to bicarb fluid
avoid nephrotoxins hold ARB and metfomin, Farxiga
EUa for COVID per ID
-
-
Date of Service: March 11, 2023
CC / HPI / ROS
-
Chief Complaint:
SHAYY, hyponatremia
History of Present Illness:
cr improving to 2.2, sodium better at 131
met acidosis persists bicarb at 16
no fever, weaning pressors, BP imroving
Review of Systems:
no cp or sob
cough better
no diarrhea
Labs
-
Labs:
WBC 11.0 10^3/uL (4.8-10.8) H 03/11/23 03:47
RBC 5.11 10^6/uL (4.70-6.10) 03/11/23 03:47
Hgb 14.9 g/dL (13.0-18.0) 03/11/23 03:47
Hct 42.6 % (39.0-52.0) 03/11/23 03:47
Plt Count 157 10^3/uL (130-400) 03/11/23 03:47
Sodium Cancelled 03/11/23 18:00
Potassium Cancelled 03/11/23 18:00
Chloride Cancelled 03/11/23 18:00
Carbon Dioxide Cancelled 03/11/23 18:00
BUN Cancelled 03/11/23 18:00
Creatinine Cancelled 03/11/23 18:00
eGFR Cancelled 03/11/23 18:00
Glucose Cancelled 03/11/23 18:00
Calcium Cancelled 03/11/23 18:00
Albumin 3.9 g/dl (3.5-5.0) 03/10/23 05:55
Physical Exam
-
Vital Signs:
Vital Signs
Temp Pulse Resp BP Pulse Ox
97.6 F 101 24 122/103 96
03/11/23 03:40 03/11/23 10:01 03/11/23 10:01 03/11/23 10:01 03/11/23 10:14
Cardiovascular:: Regular rate and rhythm
Respiratory:: Bilateral: CTA
Lung Excursion:: Normal
Abdomen:: Nontender and Soft
Extremity Edema:: None: Bilateral:
Garcia Catheter: No
[2023-03-11] MEDS: SOLU-CORTEF IV (13:08)
[2023-03-11 13:59] LABS: Glucose - Point of Care 323 mg/dl (70-99)
[2023-03-11] MEDS: SODIUM BICARBONATE 1075 MEQ IV (14:03)
[2023-03-11] MEDS: NOVOLOG FLEXPEN-MODERATE RESISTANCE 7 UNITS SC (14:03)
--- NOTE | 2023-03-11 15:10 | W.PN.GI.CBS2 ---
Today's Communication / Plan
-
PLAN:
-Etiology of diarrhea related to infectious source with sudden onset of large volume stool leading to SHAYY, dehydration, syncope vs covid related vs other
Stool cultures pending, Shiga toxin, C. difficile, Cryptosporidium, Giardia negative and stool white cells negative
Diarrhea seems to have resolved
No further GI evaluation at this time
Tolerating diet
-cont rx for covid per ID with �Molnupiravir 800mg po bid x 5 days
-local care for rectal bleeding likely irritation with diarrhea
remain on chronic steroid with adrenal insufficiency
Will sign off, please call back if needed
Assessment / Plan
-
Pt is a 72yo with hx pituitary adenoma with ablation, adrenal insufficiency, NIDDM, HTN, hypercholesterolemia, hypothyroidism, tremors with presentation to ER with syncope. On EMS arrival noted with hypotension and ill appearing. In ER he was also
noted with fever, tachycardia with hemoconcentration and dehydration with hbg 16, SHAYY with creat 3.3, Na 125, Troponin 0.402. In reviewing with patient he was at birthday [employer] for grandson on Wednesday eating hoagies then Wednesday began with
symptoms with increased diarrhea with decreased appetite and eating less. He then tested + for covid on Wednesday but with Paxlovid use. He has colonoscopy [place] [address] Montanez with diverticulosis. No other sick contacts or tainted foods he
could recall.
-sudden onset diarrhea
-local rectal bleeding with irritation with diarrhea
-covid +
-syncope/hypotension
-fever
-SHAYY
-tachycardia
-hyponatremia
other medical problems:
-pituitary adenoma
-adrenal insufficiency
-tremors
-NIDDM
-diverticulosis
-hypothyroidism
PLAN:
-Etiology of diarrhea related to infectious source with sudden onset of large volume stool leading to SHAYY, dehydration, syncope vs covid related vs other
Stool cultures pending, Shiga toxin, C. difficile, Cryptosporidium, Giardia negative and stool white cells negative
Diarrhea seems to have resolved
No further GI evaluation at this time
Tolerating diet
-cont rx for covid per ID with �Molnupiravir 800mg po bid x 5 days
-local care for rectal bleeding likely irritation with diarrhea
remain on chronic steroid with adrenal insufficiency
Will sign off, please call back if needed
Subjective
Subjective
Date of Service: March 11, 2023
Patient without any diarrhea since admission, tolerating diabetic diet
Objective
Data Reviewed
Laboratory Data:
Laboratory Results
03/11/23 03:47
03/11/23 18:00
Laboratory Results
Magnesium 2.3 mg/dl (1.6-2.3) 03/11/23 03:46
Total Bilirubin 1.1 mg/dl (0.2-1.3) 03/10/23 05:55
AST 110 U/L (17-59) H 03/10/23 05:55
ALT 23 U/L (0-50) 03/10/23 05:55
Alkaline Phosphatase 45 U/L (38-126) 03/10/23 05:55
Vital Signs and I&O:
Vital Signs
Temp Pulse Resp BP Pulse Ox
97.6 F 101 22 130/86 96
03/11/23 03:40 03/11/23 15:01 03/11/23 15:01 03/11/23 15:01 03/11/23 15:01
I&O
03/10/23 03/11/23 03/12/23
06:59 06:59 06:59
Intake Total 4000 / 4000
Output Total 1000 / 1000
Balance 3000 / 3000
Physical Exam
Physical Exam
GI: Soft, Non Distended and Non Tender
[2023-03-11] MEDS: VITAMIN E 400 UNITS PO (17:12)
[2023-03-11] MEDS: LIPITOR 20 MG PO (17:12)
[2023-03-11 18:43] LABS: Glucose - Point of Care 259 mg/dl (70-99)
[2023-03-11] MEDS: NOVOLOG FLEXPEN-MODERATE RESISTANCE 5 UNITS SC (18:44)
[2023-03-11] MEDS: CORTEF 20 MG PO (19:48)
[2023-03-11] MEDS: TYLENOL 650 MG PO (19:49)
[2023-03-11 21:55] LABS: Glucose - Point of Care 217 mg/dl (70-99)
[2023-03-11] MEDS: LANTUS 0.149999999999999994 UNITS SC (21:55)
[2023-03-11] MEDS: HEPARIN SC (23:18)
[2023-03-12] VITALS (12 sets, daily range): BP systolic 102–147; BP diastolic 58–104; O2SAT 98; BMI 36.9
[2023-03-12] MEDS: SODIUM BICARBONATE 1075 MEQ IV (04:38)
[2023-03-12] MEDS: SYNTHROID 125 MCG PO (04:38)
[2023-03-12 04:53] LABS: % Basophils 0.1 % (0-2); % Eosinophils 0.2 % (0-6); % Immature Granulocytes 0.4 % (0-0.5); % Lymphocytes 9.1 % (20.5-51.1); % Monocytes 4.6 % (1.7-9.3); % Neutrophils 85.6 % (42.2-75.2); Absolute Monocytes 0.5 10^3/uL (0.1-0.6); Hematocrit 40.3 % (39.0-52.0); Hemoglobin 13.9 g/dL (13.0-18.0); Mean Corp Hgb Conc. 34.5 g/dL (33.0-37.0); Mean Corpuscular Hgb 28.9 pg (27.0-31.0); Mean Corpuscular Volume 83.8 fL (80.0-94.0); Nucleated Red Blood Cells % 0 % (-); Platelet Count 145 10^3/uL (130-400); Red Blood Cell Count 4.81 10^6/uL (4.70-6.10); Red Cell Dist. Width 13.4 % (11.5-14.5); White Blood Cell Count 10.5 10^3/uL (4.8-10.8)
[2023-03-12 05:19] LABS: Magnesium 2.6 mg/dl (1.6-2.3)
--- NOTE | 2023-03-12 05:45 | PTCARENOTE ---
assumed care of patient- pt is AAOx3- able to make needs known. pt feeling much better than yesterday. ortho vitals ordered- negative tilt. RA 97%- while sleeping pt does have periods of apnea- oxygen going down to 69%. 2L applied while asleep. pt
incontinent of urine- full bath given and pt changed- no periods of diarrhea. desenex to groin- MASD noted. right shoulder pain- given tylenol per APR. care ongoing.
[2023-03-12 08:54] LABS: Glucose - Point of Care 161 mg/dl (70-99)
[2023-03-12] MEDS: THERAGRAN 1 TABLET PO (08:57)
[2023-03-12] MEDS: HEPARIN 5000 UNITS SC ×3 (08:57→23:56)
[2023-03-12] MEDS: CORTEF 20 MG PO ×2 (08:57→21:27)
[2023-03-12] MEDS: LOW STRENGTH ASPIRIN 81 MG PO (08:57)
[2023-03-12] MEDS: NOVOLOG FLEXPEN-MODERATE RESISTANCE 1 UNITS SC ×2 (08:58→18:24)
[2023-03-12] MEDS: DESENEX/MITRAZOL/ZEASORB 1 APPLIC TOPICAL ×2 (08:58→21:28)
[2023-03-12] MEDS: MOLNUPIRAVIR (EUA) 800 MG PO ×2 (08:58→21:26)
[2023-03-12] MEDS: NON-FORMULARY ITEM 4 PUMP TRANSDERM (08:58)
--- NOTE | 2023-03-12 10:27 | CM ---
Addendum entered by Tomer Gonzalez 03/12/23 12:03:
Updated PT and OT evaluations noted. Pt is doing much better, however, SNF level of care recommended and if pt refused then home with home PT, 24/ supervision, 1st floor set up and home PT.
CM discussed it with pt and his spouse and both requested home with home PT and pt's spouse stated she is available for 24/7 supervision and pt will stay on 1st floor. A list of VN vendors provided. Both pt and his spouse preferred VN. [facility]
to [facility]. Both pt and his spouse are aware that pt most likely will be discharged tomorrow and they expressed their agreement. Pt's spouse stated she will transport pt home. Pt's spouse stated she has COVID and she will await for her
outside.
Please fax discharge instructions to [facility] at [phone].
D/C plan: home with VN, 31/08 family support/supervision, and 1st floor set up.
CM will follow with discharge plan updates as hospitalization progresses
Original Note:
CM following re: discharge planning.
Reviewed pt's chart, met with pt and spoke to pt's spouse over the phone to update on discharge plan progress.
PT and OT recommend SNF. Pt expressed not happy feelings regarding going to a SNF and asked to discuss it with his spouse. Pt's spouse requested PT and OT to see the pt today again and if pt is very weak and a SNF recommendation is very strong then
she will make a decision regarding pt going to a SNF.
Pt's spouse stated she will prefer pt returns back home with home PT if able. pt stated he has been receiving outpatient PT and OT at [facility] and pt feels he will be OK to return back home. Also, pt's spouse stated she had a
back surgery and she will not be able to care for pt at home if pt requires a lot of care.
PT and OT are aware and they will re-evaluate the pt today again.
Awaiting for PT/OT updated evaluations
D/C plan: SNF vs home with home PT and family support.
CM will follow with discharge plan updates as hospitalization progresses
--- NOTE | 2023-03-12 12:02 | W.PN.NEPH.PH ---
Today's Communication / Plan
-
ivf
Assessment/Plan
-
IMP:
Hyponatremia
SHAYY-cr 0.7 in in ECW
A gap met acidosis
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
Fever
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
Syncope, hypotension
Diarrhea
Hypopituitarism
Adrenal Insufficiency on home hydrocortisone
History of pituitary tumor status post ablation approximately in 2000
Hypothyroidism
Type 2 Diabetes Mellitus
History of Hypertension
History of Diverticulosis
Venous stasis �
Hyperlipidemia �
Peripheral artery disease
Nocturia� �
History of Tremor per records� �
History of Tic per records
GERD
Plan:
-follow BMP
-bicarb IVF today
-
-
Date of Service: March 12, 2023
CC / HPI / ROS
-
Chief Complaint:
SHAYY, hyponatremia
History of Present Illness:
cr improving to 2.2, sodium better at 131, but no labs yet today
met acidosis persists bicarb at 16 yesterday
no fever, weaning pressors, BP improving
Review of Systems:
no cp or sob
cough better
no diarrhea
Labs
-
Labs:
WBC 10.5 10^3/uL (4.8-10.8) 03/12/23 04:37
RBC 4.81 10^6/uL (4.70-6.10) 03/12/23 04:37
Hgb 13.9 g/dL (13.0-18.0) 03/12/23 04:37
Hct 40.3 % (39.0-52.0) 03/12/23 04:37
Plt Count 145 10^3/uL (130-400) 03/12/23 04:37
Sodium Cancelled 03/11/23 18:00
Potassium Cancelled 03/11/23 18:00
Chloride Cancelled 03/11/23 18:00
Carbon Dioxide Cancelled 03/11/23 18:00
BUN Cancelled 03/11/23 18:00
Creatinine Cancelled 03/11/23 18:00
eGFR Cancelled 03/11/23 18:00
Glucose Cancelled 03/11/23 18:00
Calcium Cancelled 03/11/23 18:00
Albumin 3.9 g/dl (3.5-5.0) 03/10/23 05:55
Physical Exam
-
Vital Signs:
Vital Signs
Temp Pulse Resp BP Pulse Ox
98.8 F 72 20 147/76 99
03/12/23 11:52 03/12/23 06:00 03/12/23 06:00 03/12/23 06:00 03/12/23 06:00
Cardiovascular:: Regular rate and rhythm
Respiratory:: Bilateral: Coarse
Lung Excursion:: Normal
Abdomen:: Nontender and Soft
Bowel Sounds:: Normal
Extremity Edema:: None: Bilateral:
--- NOTE | 2023-03-12 12:05 | W.PN.HOSP.TC ---
Today's Communication/Plan
-
Treat hyperglycemia as below with Lantus increase, Metformin and Farxiga
Continue IV fluids as per Loader Engineer
Restart home Clonidine and monitor response
Assessment / Plan
Assessment / Plan
Physical Exam
General: Not in acute distress
HEENT: Normocephalic
Respiratory: Clear
Cardiac: S1/S2 and RRR
GI: Soft, Non Tender and Normal Bowel Sounds
Musculoskeletal: No Cyanosis and No Edema
Skin: Warm and Dry
Neuro: Awake, Alert, AO x 3, Nonfocal/grossly intact and Other (Moves all extremities spontaneously. Speech is clear.)
Psych: Calm, Intact Judgment/Insight and Agitated

Echocardiogram as per academic department chair's report:
'CONCLUSIONS
Normal left ventricular size.
Mild concentric left ventricular hypertrophy.
Hyperdynamic left ventricular systolic function.
No regional wall motion abnormalities are seen.
LV ejection fraction is 70-75% by visual assessment.
Normal right ventricular size and function.
Trace mitral regurgitation.
No aortic stenosis.
Trace tricuspid regurgitation.
Normal pericardium without effusion.'

Assessment/Plan
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
Fever
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
Syncope, Suspected Associated with Dehydration, Poor PO Intake
Diarrhea
Hypotension needing Levophed
Hypopituitarism
Adrenal Insufficiency on home hydrocortisone
History of pituitary tumor status post surgical resection approximately in 2001
-Paxlovid started outpatient however patient has significant SHAYY with low eGFR - consulted ID for further guidance on Paxlovid and other COVID therapies - AVOID PAXLOVID
-Continue Molnupiravir 800mg po bid x 5 days (first day was 03/10/23)
-COVID isolation through 03/17/23.
-Lactic acid is within normal limits
-IV fluid boluses given in the ER; continue maintenance IV fluids
-Wean Levophed/vasopressors as able
-Status post stress dose steroids started in the form of Hydrocortisone IV 60 mg Q6H (assuming patient takes Hydrocortisone 20 mg PO BID at home -- will need to confirm home med rec)
-Spoke with Dr. Bazzi of endocrinology: change on 03/11/23 to Hydrocortisone 20 mg Q12H while hospitalized but to 20 mg in the morning and 5 mg in the evening after discharge
-Consulted endocrinology, recommendations appreciated
-Orthostatic vital signs
-Troponins elevated but unremarkable
-Echocardiogram unremarkable
Symptomatic Hyponatremia - Suspected Hypovolemic
-IV fluid boluses given in the ER
-Monitor BMP
-Nephrology consulted, recommendations appreciated
Acute Kidney Injury
Metabolic Acidosis
-IV fluid boluses given in the ER
-Continue bicarb intravenous fluids as per nephrology
-Nephrology consulted, recommendations appreciated
Hypokalemia
-Replace potassium
-Recheck BMP in the morning
Hypothyroidism
-Continue home Synthroid
Type 2 Diabetes Mellitus - Insulin Sliding Scale and Accuchecks. Hold home Metformin given renal function. With hyperglycemia, consulted Diabetes Nurse Practitioner: Lantus increased to 18 units HS, Metformin and Farxiga restarted.
History of Hypertension? - Hold home Benicar. Restart Clonidine to avoid Clonidine withdrawal - monitor BP closely after restarting home Clonidine.
History of Diverticulosis
Venous stasis �
Hyperlipidemia �
Peripheral artery disease - Continue Aspirin 81 mg daily
Nocturia� �
History of Tremor per records� �
History of Tic per records
GERD
DVT PPx: Heparin subq
Code Status: Full Code
Anticipated Discharge: 24 - 48 hours
Subjective/Interval History
-
Date of Service: March 12, 2023
Patient was seen and examined. Nurse reported that patient did not have any diarrhea today. Patient reports feeling fine and denied any new symptoms.
Objective Data
-
Labs:
Laboratory Results
03/12/23
04:37
WBC 10.5
Hgb 13.9
Hct 40.3
Plt Count 145
Vital Signs:
Vital Signs
Temp Pulse Resp BP Pulse Ox
98.8 F 72 20 147/76 99
03/12/23 11:52 03/12/23 06:00 03/12/23 06:00 03/12/23 06:00 03/12/23 06:00
I&O
03/11/23 03/12/23 03/13/23
06:59 06:59 06:59
Intake Total 4000 / 4000 1202.8 / 1202.8
Output Total 1000 / 1000
Balance 3000 / 3000 1202.8 / 1202.8
[2023-03-12 12:47] LABS: Glucose - Point of Care 203 mg/dl (70-99)
[2023-03-12] MEDS: NOVOLOG FLEXPEN-MODERATE RESISTANCE 3 UNITS SC (13:09)
[2023-03-12] MEDS: SODIUM BICARBONATE 1150 MEQ IV (13:10)
[2023-03-12 13:22] LABS: NT-proBNP 167 pg/ml
[2023-03-12 13:30] LABS: Blood Urea Nitrogen 38 mg/dl (9-20); Calcium 8.7 mg/dl (8.4-10.2); Carbon Dioxide 26 mmol/L (22-30); Chloride 93 mmol/L (98-107); Estimated Creatinine Clearance 73 ml/min; Glucose 206 mg/dl (70-99); Potassium 3.4 mmol/L (3.5-5.1); Sodium 133 mmol/L (135-145); eGFR > 60.00
--- NOTE | 2023-03-12 14:05 | VNURNOTE ---
Home Health Liaison spoke with patient's Michelle by phone at 1400 to discuss [facility] nurse/therapy, visits, schedule and homebound status. Michelle is agreeable and understands that visits at home will be 2-3 x per week to assess and teach medical
management.
Michelle is aware that [facility] will contact them for start of care in 1-2 days after discharge from .
[facility] referral completed in [facility].
--- NOTE | 2023-03-12 14:41 | PN.DE.MGMTRT ---
Insulin Management
- -
03/12/2023: Diabetes Management Consult
72 year old male with a PMH that includes: HTN, PAD, T2DM, HLD, Panhypopituitarism with adrenal insufficiency, Hypothyroidism and hypogonadism on levothyroxine, testosterone and 20 mg of hydrocortisone in the morning, 5 mg in the evening, he follows
with Endocrinology at [facility].
He was admitted on 03/10 for COVID and adrenal insufficiency and started on stress dose steroids 60 mg IV every 6 hours.
Pt was seen and evaluated by Endo Dr. Bazzi on 03/11 and tapered to Hydrocortisone 20mg BID. He was taking Farxiga 5mg @ HS and Metformin 1500mg QPM both on hold due to SHAYY. Cr 3.3-->2.2-->1.1 today. Current Diabetes regimen includes Lantus 15 units
and low corrective with meals.
His glucose has remained elevated >200, FBG 206 this AM, premeal range is 203-323.
Will increase Lantus to 18 units @ HS. Resume his OP regimen- Metformin 1500mg and Farxiga 5mg @ dinner time.
Cont Accucheks AC/HS, change diet to 1800 ADA diet.
Diabetes History
- -
Type of Diabetes: 2 requiring insulin
Pre-Admission Diabetes Regimen
03/12/23
13:00
Creatinine 1.1
Lab Results
Hemoglobin A1c 6.9 % (4.0-5.6) H 03/11/23 03:47
Insulin Pump Settings
IP Diabetes Regimen
03/11/23 03/11/23 03/12/23
18:31 21:43 08:43
Glucose
POC Glucose 259 H 217 H 161 H
03/12/23 03/12/23
12:36 13:00
Glucose 206 H
POC Glucose 203 H
Meal type: Lunch
Meal type: Breakfast
Meal type: Dinner
Meal type: Lunch
Amount consumed: Patient refused
Amount consumed: 80%
Amount consumed: 100%
Amount consumed: Patient refused
Patient Education
--- NOTE | 2023-03-12 17:00 | PTCARENOTE ---
Testosterone medication given to JEROME Griffith on .
[2023-03-12 18:23] LABS: Glucose - Point of Care 162 mg/dl (70-99)
[2023-03-12] MEDS: VITAMIN E 400 UNITS PO (18:24)
[2023-03-12] MEDS: FARXIGA 5 MG PO (18:24)
[2023-03-12] MEDS: LIPITOR 20 MG PO (18:25)
[2023-03-12] MEDS: GLUCOPHAGE XR EXTENDED RELEASE 1500 MG PO (18:25)
[2023-03-12] MEDS: LANTUS 0.179999999999999993 UNITS SC (21:25)
[2023-03-12 21:26] LABS: Glucose - Point of Care 169 mg/dl (70-99)
[2023-03-12] MEDS: CATAPRES 0.100000000000000006 MG PO (21:27)
[2023-03-13 03:30] VITALS: BP 125/85
[2023-03-13] MEDS: SYNTHROID 125 MCG PO (06:36)
[2023-03-13 07:45] VITALS: BP 109/73
[2023-03-13 07:48] LABS: Glucose - Point of Care 125 mg/dl (70-99)
[2023-03-13 08:21] LABS: % Basophils 0.3 % (0-2); % Eosinophils 0.8 % (0-6); % Immature Granulocytes 0.5 % (0-0.5); % Monocytes 7.7 % (1.7-9.3); % Neutrophils 65.7 % (42.2-75.2); Absolute Eosinophils 0.1 10^3/uL (0-0.7); Absolute Lymphocytes 1.6 10^3/uL (1.2-3.4); Absolute Monocytes 0.5 10^3/uL (0.1-0.6); Absolute Neutrophils 4.1 10^3/uL (1.4-6.5); Hematocrit 36.4 % (39.0-52.0); Hemoglobin 12.9 g/dL (13.0-18.0); Mean Corp Hgb Conc. 35.4 g/dL (33.0-37.0); Mean Corpuscular Hgb 29.5 pg (27.0-31.0); Mean Corpuscular Volume 83.1 fL (80.0-94.0); Mean Platelet Volume 9.2 fL (7.4-10.4); Nucleated Red Blood Cells % 0 % (-); Platelet Count 165 10^3/uL (130-400); Red Blood Cell Count 4.38 10^6/uL (4.70-6.10); Red Cell Dist. Width 13.2 % (11.5-14.5); White Blood Cell Count 6.3 10^3/uL (4.8-10.8)
--- NOTE | 2023-03-13 08:58 | W.PN.ID1 ---
Date of Service
Date of Service: March 13, 2023
Today's Communication
SHAYY resolved. Currently on Molnupiravir 800mg po bid (day 4). At time of discharge, can dc Molnupiravir and resume his home Paxlovid x 2 more days through 03/14/23.
ID will sign off.
Assessment / Plan
# Mild COVID19 infection
- Uptodate with vaccine
-Symptom onset and COVID Ag postive on 03/07.
- Had outpatient Paxlovid x 3 doses RETAIL PROPERTY MANAGER
- No hypoxia. No PNA
- Paxlovid changed to Molnupiravir due to recent SHAYY
- SHAYY resolved. Currently on Molnupiravir 800mg po bid (day 4). At time of discharge, can dc Molnupiravir and resume resume his home Paxlovid x 2 more days through 04/03.
# Diarrhea resolved
-C. diff negative
# Hypotension - resolved
# SHAYY - resolved
#Additional Past Medical History:
Diabetes mellitus type 2
Hypertension
Pituitary adenoma s/p resection
Adrenal insufficiency on hydrocortisone
Hypothyroidism
PAD
Diverticulosis
Right knee surgery
Chief Complaint
-: Other (COVID)
Subjective / Review of Systems
Feels well. Wants to go home.
Cough improving.
Vital Signs / Physical Exam
Vital Signs
Vital Signs
Temp Pulse Resp BP Pulse Ox
97.9 F 77 18 109/73 97
03/13/23 07:45 03/13/23 07:45 03/13/23 07:45 03/13/23 07:45 03/13/23 07:45
Physical Exam
Constitutional: Comfortable
Cardiovascular: Regular Rate and S1/S2
Pulmonary: Clear
Gastrointestinal: Soft, Non Tender, Non Distended and Normal Bowel Sounds
Neurological: AO x 3
Objective Data
Lab Data
Lab Results
03/13/23 08:05
03/12/23 13:00
Estimated Creat Clear 73 ml/min 03/12/23 13:00
Lactic Acid 1.9 mmol/L (0.7-2.0) 03/10/23 10:42
Total Bilirubin 1.1 mg/dl (0.2-1.3) 03/10/23 05:55
AST 110 U/L (17-59) H 03/10/23 05:55
ALT 23 U/L (0-50) 03/10/23 05:55
Alkaline Phosphatase 45 U/L (38-126) 03/10/23 05:55
Most recent labs reviewed.
Micro Results:
03/10/23 10:20 Salmonella/Shigella Culture - Final
Feces/Stool No Salmonella, Shigella, Aeromonas or Plesiomonas species
isolated.
Campylobacter Culture - Final
No Campylobacter species isolated.
Shiga Toxin Test - Final
No E. coli Shiga Toxin 1 or 2 detected.
03/10/23 10:42 Blood Culture - Preliminary
Blood/Venous No Growth in 48 hours- Final report to follow
03/10/23 10:20 Blood Culture - Preliminary
Blood/Venous No Growth in 48 hours- Final report to follow
03/10/23 17:03 Stool Leukocytes - Final
Feces/Stool
03/10/23 17:03 Cryptosporidium/Giardia - Final
Feces/Stool Negative for Cryptosporidium and/or Giardia Lamblia
antigens.
C. difficile GDH Antigen & Toxins - Final
Negative for toxigenic C.difficile
03/10/23CXR: Limited AP semierect chest radiograph with possible mild left basilar subsegmental atelectasis.
Care Review
Plan reviewed with: Physician (Dr. Amador.)
[2023-03-13] MEDS: NOVOLOG FLEXPEN-MODERATE RESISTANCE SC ×3 (09:09→16:50)
[2023-03-13] MEDS: CATAPRES 0.100000000000000006 MG PO (09:10)
[2023-03-13] MEDS: CORTEF 20 MG PO (09:10)
[2023-03-13] MEDS: THERAGRAN 1 TABLET PO (09:10)
[2023-03-13] MEDS: LOW STRENGTH ASPIRIN 81 MG PO (09:11)
[2023-03-13] MEDS: HEPARIN 5000 UNITS SC (09:11)
[2023-03-13] MEDS: DESENEX/MITRAZOL/ZEASORB 1 APPLIC TOPICAL (09:11)
[2023-03-13] MEDS: NON-FORMULARY ITEM 1 PUMP TRANSDERM (09:13)
--- NOTE | 2023-03-13 09:16 | W.PN.NEPH.PH ---
Today's Communication / Plan
-
s/o
Assessment/Plan
-
IMP:
Hyponatremia
SHAYY-cr 0.7 in in ECW
A gap met acidosis
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
Fever
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
Syncope, hypotension
Diarrhea
Hypopituitarism
Adrenal Insufficiency on home hydrocortisone
History of pituitary tumor status post ablation approximately in 2000
Hypothyroidism
Type 2 Diabetes Mellitus
History of Hypertension
History of Diverticulosis
Venous stasis �
Hyperlipidemia �
Peripheral artery disease
Nocturia� �
History of Tremor per records� �
History of Tic per records
GERD
Plan:
-follow BMP
-cap IVF
-will sign off
-
-
Date of Service: March 13, 2023
CC / HPI / ROS
-
Chief Complaint:
SHAYY, hyponatremia
History of Present Illness:
cr improving to 1.1 yesterday
sodium better at 133
met acidosis resolved
no fever, weaning pressors, BP improving
Review of Systems:
no cp or sob
cough better
no diarrhea
eating
Labs
-
Labs:
WBC 6.3 10^3/uL (4.8-10.8) 03/13/23 08:05
RBC 4.38 10^6/uL (4.70-6.10) L 03/13/23 08:05
Hgb 12.9 g/dL (13.0-18.0) L 03/13/23 08:05
Hct 36.4 % (39.0-52.0) L 03/13/23 08:05
Plt Count 165 10^3/uL (130-400) 03/13/23 08:05
Sodium 133 mmol/L (135-145) L 03/12/23 13:00
Potassium 3.4 mmol/L (3.5-5.1) L 03/12/23 13:00
Chloride 93 mmol/L (98-107) L 03/12/23 13:00
Carbon Dioxide 26 mmol/L (22-30) 03/12/23 13:00
BUN 38 mg/dl (9-20) H 03/12/23 13:00
Creatinine 1.1 mg/dL (0.7-1.3) 03/12/23 13:00
eGFR > 60.00 03/12/23 13:00
Glucose 206 mg/dl (70-99) H 03/12/23 13:00
Calcium 8.7 mg/dl (8.4-10.2) 03/12/23 13:00
Egq-L-Mmjvpswnkkv Pept 167 pg/ml 03/12/23 04:37
Albumin 3.9 g/dl (3.5-5.0) 03/10/23 05:55
Physical Exam
-
Vital Signs:
Vital Signs
Temp Pulse Resp BP Pulse Ox
97.9 F 77 18 109/73 97
03/13/23 07:45 03/13/23 07:45 03/13/23 07:45 03/13/23 07:45 03/13/23 07:45
Cardiovascular:: Regular rate and rhythm
Respiratory:: Bilateral: Coarse
Lung Excursion:: Normal
Abdomen:: Nontender and Soft
Bowel Sounds:: Normal
Extremity Edema:: None: Bilateral:
[2023-03-13] MEDS: MOLNUPIRAVIR (EUA) 800 MG PO (09:20)
[2023-03-13] MEDS: SODIUM BICARBONATE IV (09:24)
[2023-03-13] MEDS: KCL 40 MEQ PO (09:26)
[2023-03-13 10:41] LABS: Blood Urea Nitrogen 26 mg/dl (9-20); Calcium 8.1 mg/dl (8.4-10.2); Carbon Dioxide 31 mmol/L (22-30); Chloride 97 mmol/L (98-107); Estimated Creatinine Clearance 100 ml/min; Glucose 166 mg/dl (70-99); Potassium 3.1 mmol/L (3.5-5.1); Sodium 132 mmol/L (135-145); eGFR > 60.00
[2023-03-13 12:02] LABS: Glucose - Point of Care 134 mg/dl (70-99)
--- NOTE | 2023-03-13 14:04 | W.PN.HOSP.TC ---
Today's Communication/Plan
-
Patient needs SNF; case management assistance is appreciated
Assessment / Plan
Assessment / Plan
Physical Exam
General: Not in acute distress
HEENT: Normocephalic
Respiratory: Clear
Cardiac: S1/S2 and RRR
GI: Soft, Non Tender and Normal Bowel Sounds
Musculoskeletal: No Cyanosis and No Edema
Skin: Warm and Dry
Neuro: Awake, Alert, AO x 3, Nonfocal/grossly intact and Other (Moves all extremities spontaneously. Speech is clear.)
Psych: Calm, Intact Judgment/Insight and Agitated

Echocardiogram as per hemodialysis technician's report:
'CONCLUSIONS
Normal left ventricular size.
Mild concentric left ventricular hypertrophy.
Hyperdynamic left ventricular systolic function.
No regional wall motion abnormalities are seen.
LV ejection fraction is 70-75% by visual assessment.
Normal right ventricular size and function.
Trace mitral regurgitation.
No aortic stenosis.
Trace tricuspid regurgitation.
Normal pericardium without effusion.'

Assessment/Plan
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
Fever
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
Syncope, Suspected Associated with Dehydration, Poor PO Intake
Diarrhea
Hypotension needing Levophed - RESOLVED
Hypopituitarism
Adrenal Insufficiency on home hydrocortisone
History of pituitary tumor status post surgical resection approximately in 2001
-Paxlovid started outpatient however patient has significant SHAYY with low eGFR - consulted ID for further guidance on Paxlovid and other COVID therapies
-Continue Molnupiravir
-COVID isolation through 03/17/23.
-Lactic acid is within normal limits
-IV fluid boluses given in the ER; continue maintenance IV fluids
-Status post stress dose steroids started in the form of Hydrocortisone IV 60 mg Q6H
-Spoke with Dr. Bazzi of endocrinology: change on 03/11/23 to Hydrocortisone 20 mg Q12H while hospitalized but to 20 mg in the morning and 5 mg in the evening after discharge
-Consulted endocrinology, recommendations appreciated
-Orthostatic vital signs
-Troponins elevated but unremarkable
-Echocardiogram unremarkable
Symptomatic Hyponatremia - Suspected Hypovolemic
-IV fluid boluses given in the ER
-Monitor BMP
-Nephrology consulted, recommendations appreciated
Acute Kidney Injury
Metabolic Acidosis
-IV fluid boluses given in the ER
-Status post bicarb intravenous fluids as per nephrology
-Nephrology consulted, recommendations appreciated
Hypokalemia
-Replace potassium
-Recheck BMP in the morning
-Will consider discharging on 10 meq BID potassium for the next 3 days (patient will also be resumed on Benicar so that should help with the hypokalemia)
Hypothyroidism
-Continue home Synthroid
Type 2 Diabetes Mellitus - Insulin Sliding Scale and Accuchecks. Hold home Metformin given renal function. With hyperglycemia, consulted Diabetes Nurse Practitioner: Lantus increased to 18 units HS, Metformin and Farxiga restarted.
History of Hypertension? - Resume home Benicar. Continue Clonidine.
History of Diverticulosis
Venous stasis �
Hyperlipidemia �
Peripheral artery disease - Continue Aspirin 81 mg daily
Nocturia� �
History of Tremor per records� �
History of Tic per records
GERD
DVT PPx: Heparin subq
Code Status: Full Code
Anticipated Discharge: 24 - 48 hours
Subjective/Interval History
-
Date of Service: March 13, 2023
Patient was seen and examined. He reported no new chest pain or shortness of breath, he would like to go home today.
Objective Data
-
Labs:
Laboratory Results
03/13/23 03/13/23
08:05 10:04
WBC 6.3
Hgb 12.9 L
Hct 36.4 L
Plt Count 165
Sodium 132 L
Potassium 3.1 L
Chloride 97 L
Carbon Dioxide 31 H
BUN 26 H
Creatinine 0.8
Glucose 166 H
Calcium 8.1 L
Vital Signs:
Vital Signs
Temp Pulse Resp BP Pulse Ox
98 F 69 16 109/73 96
03/13/23 11:40 03/13/23 11:40 03/13/23 11:40 03/13/23 09:10 03/13/23 11:40
I&O
03/12/23 03/13/23 03/14/23
06:59 06:59 06:59
Intake Total 1202.8 / 1202.8 1350 / 1350
Balance 1202.8 / 1202.8 1350 / 1350
--- NOTE | 2023-03-13 14:55 | CM ---
Chart reviewed and nurse case manager confirmed with patient's spouse plan is to home with [facility].
Plan; Home with [facility].
[2023-03-13 15:38] VITALS: BP 122/68
[2023-03-13] MEDS: HEPARIN SC (16:50)
--- NOTE | 2023-03-13 17:19 | W.DS.TRANS ---
DC Summary - Telesales Representative
-
Discharge Instructions:
Discharge Diagnosis/Procedures Recent COVID (+) Diagnosis 2 days Prior to
Arrival
Fever
Suspected Sepsis Prior to Arrival, Secondary to
COVID
Syncope, Suspected Associated with Dehydration,
Poor Oral Intake
Diarrhea
Hypotension needing Levophed
Hypopituitarism
Adrenal Insufficiency on home hydrocortisone
History of pituitary tumor status post surgical
resection approximately in 2001
Symptomatic Hyponatremia - Suspected Hypovolemic
Acute Kidney Injury
Metabolic Acidosis
Hypokalemia
Hypothyroidism
Type 2 Diabetes Mellitus
Suspected history of hypertension
History of Diverticulosis
Venous stasis
Hyperlipidemia
Peripheral artery disease
Nocturia
History of Tremor per records
History of Tic per records
Gastroesophageal Reflux Disease
Diet Diabetic, Carb Controlled,Low Fat,Low
Cholesterol
Activity As tolerated
Driving Restrictions Not until seen by your Dr
Blood Work Have your blood sugars rechecked by Wednesday,
March 15, 2023
Have your basic metabolic panel lab-work
rechecked with your primary care physician's
office by Wednesday, March 15, 2023
Other Services [facility]
Instructions: High Blood Sugar, Adult (DC)
Low blood sugar in people with diabetes
Insulin Glargine
Dealing with Low Blood Sugar from the Drugs You Take
Stand-Alone Forms:
Changes to Home Medications: Yes
Discharge Medications:
DC Medications w/original date entered in [facility]
aspirin 81 mg tablet,delayed release 81 mg PO DAILY Blood Clot Prevention/Tx 03/10/23
clonidine HCl 0.1 mg tablet 0.1 mg PO BID Blood Pressure 03/10/23
dapagliflozin propanediol 5 mg tablet (Farxiga) 5 mg PO HS Diabetes 03/10/23
hydrocortisone 20 mg tablet 20 mg PO DAILY adrenal insufficiency 03/10/23
hydrocortisone 5 mg tablet 5 mg PO QPM adrenal insufficiency 03/10/23
levothyroxine 125 mcg tablet 125 mcg PO DAILY Thyroid 03/10/23
losartan 25 mg tablet 25 mg PO QPM Blood Pressure 03/10/23
metformin 750 mg tablet,extended release 24 hr 1,500 mg PO QPM Diabetes 03/10/23
omega 3-jfq-apk-fish oil 1,000 mg (120 mg-180 mg) capsule (Fish Oil) 1 cap PO DAILY Supplement 03/10/23
simvastatin 40 mg tablet 40 mg PO HS High Cholesterol 03/10/23
testosterone 10 mg/0.5 gram/actuation transdermal gel pump 2 pump transdermal SUTUTHSA apply to B/L thighs/shoulders/stomach 03/10/23
testosterone 10 mg/0.5 gram/actuation transdermal gel pump 4 pump transdermal MOWEFR apply to B/L thighs/shoulders/stomach 03/10/23
therapeutic multivitamin 1 tab PO DAILY Supplement 03/10/23
vitamin E 1 tab PO QPM Supplement 03/10/23
insulin glargine 100 unit/mL (3 mL) subcutaneous pen (Basaglar KwikPen U-100 Insulin) 10 unit (0.1 mL) SC HS #5 ea 03/13/23
nirmatrelvir 300 mg (150 mg x2)-ritonavir 100 mg tablet,dose pack (Paxlovid) 0 ea PO .COMPLEX covid #0 ea 03/13/23
pen needle, diabetic 32 gauge x 5/32' (BD Ultra-Fine Giselle Pen Needle) #100 ea 03/13/23
potassium chloride 10 mEq capsule,extended release 10 meq PO BID #8 caps 03/13/23
Home Medication Changes
New Medications include Insulin Glargine, Insulin Pen Tillar and Potassium Chloride
Paxlovid is to be continued until March 14, 2023
Simvastatin should be on hold until the day after you finish Paxlovid
Pending Results: Yes
Additional Pending Results:
Final results of blood cultures from hospitalization
Total time spent discharging patient (in min): 38
--- NOTE | 2023-03-13 17:51 | PTCARENOTE ---
pt.d/c home with [facility]. IV and tele removed. D/C paperwork reviewed including insulin education, doctor f/u appointments, medications, and activity restriction/ diet reviewed. pt picked up by .
[2023-03-14 03:22] LABS: ANA, IgG Reflex to HEp-2 None Detected (None Detected)
[2023-03-14 16:04] LABS: Myeloperoxidase Antibody 0 AU/mL (0-19); Serine Protease-3, IgG 0 AU/mL (0-19)
[2023-03-15 01:45] LABS: Complement C3 150 mg/dl (88-165)
--- NOTE | 2023-03-15 09:20 | W.DCSUMMARY ---
Discharge Summary
Discharge Data
Date of Admission: 03/12/23
Date of Discharge: 03/16/23
Total time spent discharging patient (in min): 38
-
Pending Results: Yes
Additional Pending Results:
Final results of blood cultures from hospitalization
Hospital Course
72 y/o male with past medical history of Hypopituitarism, Adrenal Insufficiency on home hydrocortisone, History of pituitary tumor status post surgical resection approximately in 2001, Hypothyroidism, Type 2 Diabetes Mellitus, History of
Hypertension, Diverticulosis, Hyperlipidemia, Peripheral artery disease and GERD, presented with syncope. Patient tested positive for COVID-19 two days prior to presentation, and started on Paxlovid the day before presentation, by his primary care
physician (he took his first 2 doses the day before presentation), presented to the emergency department after syncopal episode on the morning of presentation. Per patient's (who was present in the room at the time of admission) patient was
sleeping on a recliner, had gotten up and was going to the bathroom when he passed out. who was sleeping on the couch next to him, did not see patient pass out but heard a noise and went to him immediately. EMS was called at that time and when
medics arrived, patient was found to hypotensive and ill-appearing. On the way to the stretcher with EMS, patient had another brief episode of loss consciousness, with spontaneous resolution. Upon arrival to the emergency room, patient was found to
be febrile, hypotensive and tachycardic. Patient, per patient's , also has had nonproductive cough along with diarrhea, as well as significant loss of appetite.
Patient was started on vasopressors and stress dose steroids (he was noted to be on chronic steroids at home due to his hypopituitarism). Endocrinology was consulted and since patient's vital signs were better and patient was doing better overall,
he was able to be switched to hydrocortisone orally but kept at 20 mg twice a day rather than his home dose which is 20 mg in the morning, 5 mg in the evening, but upon discharge, patient is to go back to his home dose and follow-up with his
street light servicer in a few months.
Patient was found to be significantly hyponatremic and with acute kidney injury, intravenous fluids were given for hypovolemic hyponatremia and nephrology was consulted. Patient was later given bicarbonate intravenous fluids due to metabolic
acidosis. Due to patient's renal function, Paxlovid was stopped, Infectious Disease was consulted and patient was started on Molnupiravir.
Gastroenterology was consulted due to patient's profuse diarrhea since admission with bleeding from perianal skin excoriation, the diarrhea was determined to likely be from COVID vs. a separate infection, stool studies were ordered and patient was
continued on intravenous fluids.
Patient's home antihypertensives including Clonidine were resumed. Diabetes Nurse practitioner was consulted and Lantus was added to his Diabetes Mellitus regimen, due to his hyperglycemia.
Discharge Plan
-
Patient Disposition: Home with Home Care
Discharge Diagnosis/Procedures: Recent COVID (+) Diagnosis 2 days Prior to Arrival
Fever
Suspected Sepsis Prior to Arrival, Secondary to COVID
Syncope, Suspected Associated with Dehydration, Poor Oral Intake
Diarrhea
Hypotension needing Levophed
Hypopituitarism
Adrenal Insufficiency on home hydrocortisone
History of pituitary tumor status post surgical resection approximately in 2001
Symptomatic Hyponatremia - Suspected Hypovolemic
Acute Kidney Injury
Metabolic Acidosis
Hypokalemia
Hypothyroidism
Type 2 Diabetes Mellitus
Suspected history of hypertension
History of Diverticulosis
Venous stasis
Hyperlipidemia
Peripheral artery disease
Nocturia
History of Tremor per records
History of Tic per records
Gastroesophageal Reflux Disease
Condition: Good
Diet: Low Fat, Low Cholesterol and Diabetic, Carb Controlled
Activity: As tolerated
Driving Restrictions: Not until seen by your Dr
Blood Work: You should review all of your current medications, recheck your complete blood count and basic metabolic panel, and reassessment of your vital signs and physical exam, all with your primary care physician, latest by March 18, 2023
Have your blood sugars rechecked by Wednesday, March 15, 2023
Have your basic metabolic panel lab-work rechecked with your primary care physician's office by Wednesday, March 15, 2023
Other Services: [facility]
Activity Restrictions/Additional Instructions:
Complete 2 more days of Paxlovid, and do not take any more Paxlovid after March 14, 2023.
Do not take your home Simvastatin while you are taking Paxlovid. Resume your home Simvastatin the day after you finish taking Paxlovid.
Have your blood sugars rechecked by Wednesday March 15, 2023
Have your potassium rechecked with your primary care physician's office by Wednesday March 15, 2023
Instructions: High Blood Sugar, Adult (DC), Low blood sugar in people with diabetes, Insulin Glargine, Dealing with Low Blood Sugar from the Drugs You Take
Referrals:
PRIVATE,PHYSICIAN [Family Provider] - in two days
Prescriptions:
New
insulin glargine [Basaglar KwikPen U-100 Insulin] 100 unit/mL (3 mL) Insulin Pen
10 unit SC HS Qty: 5 0RF
(DME) pen needle, diabetic [BD Ultra-Fine Giselle Pen Needle] 32 gauge x ' Needle
Qty: 100 0RF
Rx Instructions:
As Directed
potassium chloride 10 mEq capsule, extended release
10 meq PO BID Qty: 8 0RF
Continued
hydrocortisone 5 mg Tablet
5 mg PO QPM
clonidine HCl 0.1 mg Tablet
0.1 mg PO BID
therapeutic multivitamin Tablet
1 tab PO DAILY
aspirin 81 mg Tablet,Delayed Release (Dr/Ec)
81 mg PO DAILY
levothyroxine 125 mcg Tablet
125 mcg PO DAILY
losartan 25 mg Tablet
25 mg PO QPM
hydrocortisone 20 mg Tablet
20 mg PO DAILY
metformin 750 mg Tablet Extended Release 24 Hr
1,500 mg PO QPM
omega [id number] oil [Fish Oil] 1,000 mg (120 mg-180 mg) Capsule
1 cap PO DAILY
testosterone 10 mg/0.5 gram /actuation Gel In Metered-Dose Pump
4 pump TRANSDERMAL MOWEFR
Patient Comments:
03/10/2023, two pumps to each side.
testosterone 10 mg/0.5 gram /actuation Gel In Metered-Dose Pump
2 pump TRANSDERMAL SUTUTHSA
Patient Comments:
03/10/2023, apply one pump to each side.
dapagliflozin propanediol [Farxiga] 5 mg Tablet
5 mg PO HS
vitamin E
1 tab PO QPM
Changed
Paxlovid 300 mg (150 mg x 2)-100 mg Tablets,Dose Pack
0 ea PO .COMPLEX Qty: 0 0RF
Patient Comments:
03/10/2023, pt. has taken two doses so far. Pt. filled on 03/08/2023.
Rx Instructions:
Resume your home Paxlovid x 2 more days through 03/14/23
Held
simvastatin 40 mg Tablet
40 mg PO HS
Hold Instructions: Resume on 03/15/23. Resume the day after you finish taking your Paxlovid
Patient Comments:
03/10/2023, pt. told to stop while on Paxlovid.
Discharge Orders:
Discharge Patient (As Directed); Ordered 03/13/23
Ordered By: Jason Amador
Discharge Date and Time
Discharge Date/Time: 03/13/23 17:50
== END 2023-03-13 17:50 | disposition home health service (06) | DRG 871 ==
LOC: 2 NORTH 16:33
PROVIDERS: Student in an Organized Health Care Education/Training Program; ADMITTING PHYSICIAN Hospitalist; CONSULT PHYSICIAN Internal Medicine; CONSULT PHYSICIAN Internal Medicine Endocrinology, Diabetes & Metabolism; EMERGENCY PHYSICIAN Emergency Medicine; OTHER PHYSICIAN Internal Medicine Infectious Disease; OTHER PHYSICIAN Specialist
DX: A41.9 Sepsis, unspecified organism (principal); U07.1 COVID-19; E23.0 Hypopituitarism; E87.1 Hypo-osmolality and hyponatremia; N17.9 Acute kidney failure, unspecified; E27.40 Unspecified adrenocortical insufficiency; E87.20 Acidosis, unspecified; K62.5 Hemorrhage of anus and rectum; R55 Syncope and collapse; I95.9 Hypotension, unspecified; N18.9 Chronic kidney disease, unspecified; E11.22 Type 2 diabetes mellitus with diabetic chronic kidney disease; I13.10 Hypertensive heart and chronic kidney disease without heart failure, with stage 1 through stage 4 chronic kidney disease, or unspecified chronic kidney disease; K57.90 Diverticulosis of intestine, part unspecified, without perforation or abscess without bleeding; I87.8 Other specified disorders of veins; E11.51 Type 2 diabetes mellitus with diabetic peripheral angiopathy without gangrene; D35.2 Benign neoplasm of pituitary gland; E66.9 Obesity, unspecified; E03.9 Hypothyroidism, unspecified; E11.65 Type 2 diabetes mellitus with hyperglycemia; E78.00 Pure hypercholesterolemia, unspecified; K21.9 Gastro-esophageal reflux disease without esophagitis; E86.1 Hypovolemia; E86.0 Dehydration; E87.6 Hypokalemia; M25.511 Pain in right shoulder; W18.39XA Other fall on same level, initial encounter; Y93.9 Activity, unspecified; Y92.009 Unspecified place in unspecified non-institutional (private) residence as the place of occurrence of the external cause; Z79.82 Long term (current) use of aspirin; Z79.890 Hormone replacement therapy; Z87.891 Personal history of nicotine dependence; Z79.84 Long term (current) use of oral hypoglycemic drugs; Z68.36 Body mass index [BMI] 36.0-36.9, adult; Z80.42 Family history of malignant neoplasm of prostate; Z83.3 Family history of diabetes mellitus; Z82.49 Family history of ischemic heart disease and other diseases of the circulatory system; Z79.52 Long term (current) use of systemic steroids
CPT/HCPCS: 93308; 70450; 71045; 73000; 73030; 73060; 73080; 73090; 73110; 73130; 76775; 80048; 80053; 81003; 81015; 82570; 82962; 83036; 83516; 83605; 83735; 83880; 84156; 84300; 84484; 85025; 86038; 86160; 87040; 87045; 87046; 87324; 87328; 87329; 87427; 87449; 89055; 93005; 93321; 93325; 96361; 96365; 96366; 96375; 97116; 97163; 97535; 99291; J7030

== ENCOUNTER → 2023-11-29 07:26 | Outpatient (REF) | payer OTHER, SELFPAY | LOC: RAD 07:26 | PROVIDERS: ATTENDING PHYSICIAN Surgery Vascular Surgery; FAMILY PHYSICIAN Family Medicine | DX: I73.9 Peripheral vascular disease, unspecified (principal) | CPT/HCPCS: 93922; 93925 ==

== ENCOUNTER → 2024-09-29 06:55 | Outpatient (REF) | payer OTHER, SELFPAY | LOC: RAD 06:55 | PROVIDERS: ATTENDING PHYSICIAN Family Medicine | DX: E11.65 Type 2 diabetes mellitus with hyperglycemia (principal) | CPT/HCPCS: 77080 ==